=== PATIENT | male | born 1935 | race Caucasian/White ===

== ENCOUNTER 2017-02-26 03:07 | Inpatient (IN) | payer OTHER ==
[~2017-02-26] VITALS: Ht 185.4 cm; Wt 80.4 kg
[~2017-02-26 03:07] MED LIST: AMLO-110 PO; ASCO10003 PO; ASPI81TA21 PO; ATEN-173 PO; ATV/1 PO; CHOLCAP5 PO; COEN1CAP PO; FLAX100024 PO; GARL400T4 PO; HYDR-4380 PO; HYZ/50125 PO; LECI1200 PO; MAGN1TAB16 PO; NIAC500T7 PO; OMEP20CA59 PO; POTA99TA PO; SIMV20TA2 PO; VITA1TAB4 PO
[2017-02-26 03:36] LABS: COMPLETE YES; HEMATOCRIT 40.9 % (42-52); IG% 0.2 %; LYMPH % 9.2 %; LYMPH ABS # 0.78 K/uL (1.2-3.4); MEAN CELL VOLUME 95.6 fL (80-100); MEAN CORPUSCULAR HEMOGLOBIN 32.2 pg (25-34); MEAN CORPUSCULAR HGB CONC 33.7 g/dl (32-36); MEAN PLATELET VOLUME 9.5 fL (7.4-10.4); NEUT % 87.6 %; PLATELET COUNT 298 K/uL (130-400); RED BLOOD COUNT 4.28 M/uL (4.7-6.1); WHITE BLOOD COUNT 8.47 K/uL (4.8-10.8)
[2017-02-26 03:55] LABS: BUN/CREATININE RATIO 21.6 (10-20); CALCIUM 8.8 mg/dl (8.5-10.1); CREATININE 2.1 mg/dl (0.60-1.40); POTASSIUM 4.7 mmol/L (3.5-5.1)
--- NOTE | 2017-02-26 04:12 | EMERGENCY ROOM VISIT NOTE ---
History Report prepared by Dilip: Dario Koch Under the Supervision of: Dr. Mariama Walters D.O. First contact with patient: 03:09 Chief Complaint: CHEST PAIN Stated Complaint: CHEST PAIN History of Present Illness The patient is a 82 year old male who presents to the Emergency Room with complaints of resolved chest pain starting about 5 hours ago. Yesterday afternoon, the patient had chest pain which resolved after a few seconds. The chest pain radiated to the back. He was at baseline for the rest of the afternoon and evening. About 5 hours ago, the patient went to sleep with persistent chest pain. He woke up about 2 hours ago when his pain worsened. He reports pain radiation from chest to neck and under his ears. He also reports shortness of breath. He took Hyzaar when his pain worsened and his blood pressure was elevated. He was given Aspirin by EMS. He did not receive any nitro. He currently denies any chest pain. The patient denies fevers, chills, cough, diaphoresis, nausea, vomiting, abdominal pain, lower extremity pain/ swelling, or any other complaints. He has a history of similar pain occurring in 2003 with myocardial infarction. He has a history of 4 bypass occurring in 2003. He did not have a recent stress test. He does not frequently have heart burn. He also has a history of 2 TIA. Source of History: patient Onset: about 5 hours ago Position: chest Symptom Intensity: No pain currently Timing: resolved Modifying Factors (Relieving): other (Aspirin) Associated Symptoms: + SOB, No fevers, No chills, No diaphoresis, No nausea , No vomiting, No abdominal pain Review of Systems See HPI for pertinent positives & negatives. A total of 10 systems reviewed and were otherwise negative. Past Medical & Surgical Medical Problems: (1) Abnormal chest xray (2) Acute renal failure (3) Chronic back pain (4) Heart disease (5) Hypertension (6) Neuropathy (7) Orthostatic hypotension (8) Renal failure (9) Rotator cuff (capsule) sprain (10) Skin lesion of back (11) Vertigo Family History Patient reports no known family medical history. Social History Smoking Status: Never Smoker Alcohol Use: none Marital Status: Housing Status: lives with family Current/Historical Medications Scheduled Amlodipine (Norvasc), 10 MG PO DAILY Aspirin Enteric Coated (Ecotrin Or Generic), 81 MG PO QAM Atenolol (Tenormin), 50 MG PO QAM Hctz/Losartan (Hyzaar 12.5MG/50MG), 1 TAB PO QAM Lorazepam (Ativan), 0.5 MG PO HS Omeprazole (Prilosec), 20 MG PO QAM Simvastatin (Zocor), 20 MG PO QPM Scheduled PRN Hydrocodone/Acetaminophen 5MG/325MG ([place] 5MG/325MG), 1 TABLET PO UD PRN for Pain Allergies Coded Allergies: Methylprednisolone (Verified Allergy, Unknown, FAST HEART RATE, 02/26/17) Tetracycline (Verified Allergy, Unknown, RASH, 02/26/17) NSAIDs (Verified Adverse Reaction, Intermediate, ULCER, 02/26/17) Physical Exam Vital Signs Date Time Temp Pulse Resp B/P (MAP) Pulse Ox O2 Delivery O2 Flow Rate FiO2 02/26/17 05:30 66 16 140/77 96 Room Air 02/26/17 05:00 68 17 158/81 96 Room Air 02/26/17 04:30 66 19 145/80 96 Room Air 02/26/17 04:00 64 19 148/75 96 Room Air 02/26/17 03:22 Room Air 02/26/17 03:18 71 02/26/17 03:10 Room Air 02/26/17 03:10 36.7 64 18 161/94 93 Room Air Physical Exam HEENT: Head - normocephalic and atraumatic Pupils are equal, round, and reactive to light. Extraocular eye muscles are intact, and sclera are anicteric. Nose - moist nasal mucosa without discharge. Mouth - moist buccal mucosa. Oropharynx is nonerythematous and there is no tonsillar exudate or edema noted. Neck: Supple; no JVD, nuchal rigidity, cervical lymphadenopathy, or auscultated bruits. Heart: Regular rate and rhythm. There is a normal S1 and S2 with no murmurs, clicks, or gallops appreciated. Lungs: Clear to auscultation bilaterally with no wheezes, rales, or rhonchi. Abdomen: Soft, completely nontender, nondistended, with good bowel sounds. There are no palpable pulsatile masses or hepatosplenomegaly. There is no guarding, rigidity, or rebound noted. Extremities: No evidence of cyanosis, clubbing, or edema. There are easily palpable peripheral pulses. Skin: warm and dry with good turgor and no rashes. Medical Decision & Procedures ER Provider Diagnostic Interpretation: X-ray results as stated below per interpretation by me: PORTABLE CHEST X-RAY Old bilateral rib fractures, median sternotomy wires, no other pulmonary pathology. Laboratory Results Test 02/26/17 03:20 Immature Granulocyte % (Auto) 0.2 % White Blood Count 8.47 K/uL (4.8-10.8) Red Blood Count 4.28 M/uL (4.7-6.1) Hemoglobin 13.8 g/dL (14.0-18.0) Hematocrit 40.9 % (42-52) Mean Corpuscular Volume 95.6 fL (80-100) Mean Corpuscular Hemoglobin 32.2 pg (25-34) Mean Corpuscular Hemoglobin Concent 33.7 g/dl (32-36) Platelet Count 298 K/uL (130-400) Mean Platelet Volume 9.5 fL (7.4-10.4) Neutrophils (%) (Auto) 87.6 % Lymphocytes (%) (Auto) 9.2 % Monocytes (%) (Auto) 3.0 % Eosinophils (%) (Auto) 0.0 % Basophils (%) (Auto) 0.0 % Neutrophils # (Auto) 7.42 K/uL (1.4-6.5) Lymphocytes # (Auto) 0.78 K/uL (1.2-3.4) Monocytes # (Auto) 0.25 K/uL (0.11-0.59) Eosinophils # (Auto) 0.00 K/uL (0-0.5) Basophils # (Auto) 0.00 K/uL (0-0.2) Immature Granulocyte # (Auto) 0.02 K/uL (0.00-0.02) Total Bilirubin 0.5 mg/dl (0.2-1) Aspartate Amino Transf (AST/SGOT) 23 U/L (15-37) Alanine Aminotransferase (ALT/SGPT) 29 U/L (12-78) Alkaline Phosphatase 72 U/L (45-117) Total Protein 7.4 gm/dl (6.4-8.2) Albumin 3.7 gm/dl (3.4-5.0) Globulin 3.7 gm/dl (2.5-4.0) Albumin/Globulin Ratio 1.0 (0.9-2) Laboratory results per my review. Medications Administered Medications (Trade) Dose Ordered Sig/Dimas Route Start Time Stop Time Status Last Admin Dose Admin Heparin Sodium/ Dextrose (Heparin 25,000 Unit/500ml D5W) 25,000 unit STK-MED ONCE .ROUTE 02/26/17 04:37 02/26/17 04:38 DC 02/26/17 04:31 25,000 UNIT Heparin Sodium (Porcine) (Heparin Sq 5000 Unit/0.5ml) 5,000 unit STK-MED ONCE .ROUTE 02/26/17 04:37 02/26/17 04:38 DC 02/26/17 04:32 5,000 UNIT Heparin Sodium/ Dextrose 500 ml @ 29 mls/hr [id number] PRN IV 02/26/17 05:00 03/28/17 04:59 02/27/17 00:24 32 MLS/HR Acetaminophen (Tylenol Tab) 650 mg Q4H PRN PO 02/26/17 05:30 03/28/17 05:29 02/26/17 20:56 650 MG Procedure Heparin Sodium/Dextrose 1 ea N/A, Heparin Sodium Porcine 5000 unit IV, Heparin Sodium/Dextrose 47969 unit IV, Heparin Sodium/Dextrose 500 ml @ 29 mls/hr IV ECG Indication: chest pain Rate (beats per minute): 68 Rhythm: normal sinus Findings: ST depression (inferior, lateral) Comparison ECG Date: December 08, 2014 Change: Changes are new when compared to December 08, 2014. ED Course 0309: Past medical records reviewed. The patient was evaluated in room A11B. A complete history and physical exam was performed. An IV lock was initiated and labs were drawn as above. A twelve-lead EKG was obtained as described above. A chest x-ray was obtained and was unremarkable other than having chronic old rib fractures. 0404: Heparin Sodium/Dextrose 1 ea N/A . The patient was observing the cycle director and pulse oximeter. 0408: Upon reevaluation, the patient is getting started on a bolus and a heparin drip. I discussed findings and results with him. He verbalized agreement of the treatment plan. The patient will be evaluated for further management and care. 0453: I discussed the patient's case with Dr. Maldonado, from [facility]. 0500: Heparin Sodium/Dextrose 500 ml @ 29 mls/hr IV Medical Decision The patient presents to the Emergency Room with complaints of chest pain. Differential diagnosis includes but is not limited to unstable angina, cardiac ischemia, STEMI, NSTEMI, GERD. His labs showed no leucocytosis, mild anemia with hemoglobin of 13.8, BUN 45, creatinine 2.1, [id number], normal LFTs, troponin 0.259. I attest that I have personally reviewed the patient's current medication list. The patient's blood pressure was slightly elevated and does not require acute lowering. This is an 82-year-old male patient who presents to the emergency with an episode of chest pain. He has new EKG findings and positive cardiac enzymes. The patient is suffering from an and STEMI. He was heparinized. He is currently chest pain-free. He is hemodynamically stable. I discussed the case with the [facility] service. They will evaluate for further care. Consults Time Called: 041 Consulting Physician: Dr. Maldonado, from [facility] Service Returned Call: [phone] I discussed the patient's case with Dr. Maldonado, from [facility]. Impression Primary Impression: NSTEMI (non-ST elevated myocardial infarction) Additional Impression: Acute renal insufficiency Critical Care I have personally spent greater than 30 minutes of critical care time in the direct management of this patient. This includes bedside care, interpretation of diagnostic studies, and testing, discussion with consultants, patient, and other required patient management activities. This 30 minutes is in excess of all separately billable procedures. Scribe Attestation The scribe's documentation has been prepared under my direction and personally reviewed by me in its entirety. I confirm that the note above accurately reflects all work, treatment, procedures, and medical decision making performed by me. Departure Information Dispostion Being Evaluated By Hospitalist Referrals Yaw Oconnell M.D. (PCP) Patient Instructions My [facility] Problem Qualifiers
[2017-02-26] MEDS ORDERED: HEPARIN 25000 UNIT/500 ML D5W ONE (04:37)
[2017-02-26] MEDS ORDERED: HEPARIN SOD 5000 UNIT/0.5 ML CARP ONE (04:37)
[2017-02-26] MEDS ORDERED: AMLO-114 PO (04:43)
[2017-02-26] MEDS ORDERED: HYDR-5688 PO (04:44)
[2017-02-26] MEDS ORDERED: ONDANSETRON INJ 2 MG/ML 2 ML VIAL IV PRN (05:30)
[2017-02-26] MEDS ORDERED: MAGNESIUM HYDROXIDE SUSP 30 ML UDC PO PRN (05:30)
[2017-02-26] MEDS ORDERED: ACETAMINOPHEN 325 MG TAB PO PRN (05:30)
[2017-02-26] MEDS ORDERED: NITROGLYCERIN 0.4 MG SL PER TAB CHARGE SL PRN (05:30)
[2017-02-26] MEDS ORDERED: MoRPHine SULFATE 2 MG/ML CARP IV PRN (05:30)
[2017-02-26] MEDS ORDERED: ALUMINUM/MAGNESIUM/SIMETH (MAALOX MAX) 30 ML UDC PO PRN (05:30)
[2017-02-26] MEDS ORDERED: POLYETHYLENE (MIRALAX) 17 GM PACK PO PRN (05:30)
[2017-02-26] MEDS ORDERED: HYDROCODONE/ACETAMOPHEN 5/325MG TAB PO PRN (05:45)
--- NOTE | 2017-02-26 06:08 | History and Physical ---
History & Physical Date & Time of Service: Feb 26, 2017 at 05:42 Chief Complaint: Chest Pain Primary Care Physician: Milagros Villela C.R.N.P History of Present Illness Source: patient, family, spouse This is a pleasant 82-year-old male, with history of coronary artery disease, CABG 4, hypertension, hyperlipidemia, chronic back pain, osteoarthritis, who presents to ED brought by ambulance after rinsing acute onset chest pain today. The patient states that he was in his usual state of health, he was out on his property, clearing branches from the forest, at approximately 1 PM yesterday afternoon. He notes that as he is carrying a pile of branches, and walking up a small hill when he began experiencing a sternal pressure type sensation, that radiated to the neck and jaw. He states that he did have some palpitations, but denies having any lightheadedness or dizziness, shortness of breath, syncope , or lower extremity edema. He also denies cough or wheezing. After resting for proximal with 30 minutes, he notes that his symptoms at subsided completely. He continued on with his day aneurysm was uneventful until approximately 10 PM last night when he tried to get to bed. Soon as he went to bed he noticed that the chest pressure and return, albeit slightly less severe than what he experienced earlier in the day. Unfortunate chest pressure continued on until approximately 1 AM this morning and at that time he made the decision to call the ambulance and be brought to the hospital for further evaluation. Of note, the patient states that he recently was right rotator cuff and was seen yesterday morning by Dr. Chery for further evaluation. At that time he was given a cortisone injection in the right shoulder. Patient notes that he has a history of acute CA. In 2003 he had quadruple bypass at [facility]. He follows with Dr. Hargrove. Last outpatient follow-up was in October of this year, he notes that no changes were made to his medications at that time. His last echocardiogram was done in 2015. These are in the [facility] records and are therefore not available. In general the patient notes that he does not get exertional chest pain or shortness of breath. He is quite active, stating that he walks on a treadmill daily up until proximally 2 months ago when chronic lower back pain prevented him from doing this activity daily. His other risk factors include hypertension, and hyperlipidemia. States that he has been noncompliant with his statin for several months, as his PCP noted that he did not need it anymore. He is a lifelong nonsmoker and does not drink alcohol. He does have a significant family history of CA, with one brother who of a CA at the age of 72, 1 brother who had a CABG in his 60s, and another brother who had 4 stents in his 60s. En route to the ED, the patient was given 324 mg aspirin chew. In the ED he had an elevated troponin of 0.259, and nonspecific ST-T wave changes. He was started on heparin infusion. At this time the patient notes that he is chest pain-free. Past Medical/Surgical History Medical Problems: (1) Acute renal failure Status: Resolved (2) Heart disease Status: Chronic (3) Hypertension Status: Chronic (4) Orthostatic hypotension Status: Resolved (5) Renal failure Status: Resolved (6) Vertigo Status: Resolved Family History Patient reports no known family medical history. 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) Immunizations History of Tetanus Vaccine?: Yes History of Pneumococcal: 2004 History of Hepatitis B Vaccine: No Multi-Drug Resistant Organisms History of MDRO: No Allergies Coded Allergies: Methylprednisolone (Verified Allergy, Unknown, FAST HEART RATE, 02/26/17) Tetracycline (Verified Allergy, Unknown, RASH, 02/26/17) NSAIDs (Verified Adverse Reaction, Intermediate, ULCER, 02/26/17) Home Medications Scheduled Amlodipine (Norvasc), 10 MG PO DAILY Aspirin Enteric Coated (Ecotrin Or Generic), 81 MG PO QAM Atenolol (Tenormin), 50 MG PO QAM Hctz/Losartan (Hyzaar 12.5MG/50MG), 1 TAB PO QAM Lorazepam (Ativan), 0.5 MG PO HS Omeprazole (Prilosec), 20 MG PO QAM Simvastatin (Zocor), 20 MG PO QPM Scheduled PRN Hydrocodone/Acetaminophen 5MG/325MG ([place] 5MG/325MG), 1 TABLET PO UD PRN for Pain Review of Systems A 10 point review of systems was otherwise negative unless stated above in the history of present illness Physical Exam Vital Signs Date Time Temp Pulse Resp B/P (MAP) Pulse Ox O2 Delivery O2 Flow Rate FiO2 02/26/17 05:00 68 17 158/81 96 Room Air 02/26/17 04:30 66 19 145/80 96 Room Air 02/26/17 04:00 64 19 148/75 96 Room Air 02/26/17 03:22 Room Air 02/26/17 03:18 71 02/26/17 03:10 Room Air 02/26/17 03:10 36.7 64 18 161/94 93 Room Air General Appearance: WD/WN, no apparent distress Head: normocephalic, atraumatic Eyes: normal inspection, EOMI ENT: hearing grossly normal, pharynx normal Neck: supple, no adenopathy, no JVD Respiratory/Chest: lungs clear, no respiratory distress Cardiovascular: regular rate, rhythm, no gallop, no murmur Abdomen/GI: normal bowel sounds, non tender, soft Back: no CVA tenderness, no muscle spasm, + pertinent finding (1 cm x 1 cm pigmented lesion with color variation.) Extremities/Musculoskelatal: no calf tenderness, no pedal edema, + pertinent finding (bruising of the right arm) Neurologic/Psych: alert, normal mood/affect, oriented x 3 Skin: normal color, warm/dry, no rash Lymphatic: no adenopathy Diagnostics Laboratory Results Results Past 24 Hours Test 02/26/17 03:20 Range/Units White Blood Count 8.47 4.8-10.8 K/uL Red Blood Count 4.28 4.7-6.1 M/uL Hemoglobin 13.8 14.0-18.0 g/dL Hematocrit 40.9 42-52 % Mean Corpuscular Volume 95.6 80-100 fL Mean Corpuscular Hemoglobin 32.2 25-34 pg Mean Corpuscular Hemoglobin Concent 33.7 32-36 g/dl Platelet Count 298 130-400 K/uL Mean Platelet Volume 9.5 7.4-10.4 fL Neutrophils (%) (Auto) 87.6 % Lymphocytes (%) (Auto) 9.2 % Monocytes (%) (Auto) 3.0 % Eosinophils (%) (Auto) 0.0 % Basophils (%) (Auto) 0.0 % Neutrophils # (Auto) 7.42 1.4-6.5 K/uL Lymphocytes # (Auto) 0.78 1.2-3.4 K/uL Monocytes # (Auto) 0.25 0.11-0.59 K/uL Eosinophils # (Auto) 0.00 0-0.5 K/uL Basophils # (Auto) 0.00 0-0.2 K/uL RDW Standard Deviation 46.2 36.4-46.3 fL RDW Coefficient of Variation 13.4 11.5-14.5 % Immature Granulocyte % (Auto) 0.2 % Immature Granulocyte # (Auto) 0.02 0.00-0.02 K/uL Sodium Level 140 136-145 mmol/L Potassium Level 4.7 3.5-5.1 mmol/L Chloride Level 106 98-107 mmol/L Carbon Dioxide Level 25 21-32 mmol/L Anion Gap 9.0 3-11 mmol/L Blood Urea Nitrogen 45 7-18 mg/dl Creatinine 2.10 0.60-1.40 mg/dl Est Creatinine Clear Calc Drug Dose 31.7 ml/min Estimated GFR () 33.4 Estimated GFR (Non- 28.9 BUN/Creatinine Ratio 21.6 10-20 Random Glucose 142 70-99 mg/dl Calcium Level 8.8 8.5-10.1 mg/dl Total Bilirubin 0.5 0.2-1 mg/dl Aspartate Amino Transf (AST/SGOT) 23 15-37 U/L Alanine Aminotransferase (ALT/SGPT) 29 12-78 U/L Alkaline Phosphatase 72 45-117 U/L Total Creatine Kinase 307 39-308 U/L Creatine Kinase MB 6.0 0.5-3.6 ng/ml Creatine Kinase MB Ratio 2.0 0-3.0 Troponin I 0.259 0-0.045 ng/ml Total Protein 7.4 6.4-8.2 gm/dl Albumin 3.7 3.4-5.0 gm/dl Globulin 3.7 2.5-4.0 gm/dl Albumin/Globulin Ratio 1.0 0.9-2 Diagnostic Radiology Chest x-ray reviewed, formal read is pending There appear to be opacities in the left lung field, with some opacification at the base. Impression Assessment and Plan (1) NSTEMI (non-ST elevated myocardial infarction) Assessment & Plan: - Previous history of acute CA, CABG 4 --> by default makes patient high risk - Troponin elevated on admission at 0.259 - Admitted to telemetry for cardiac monitoring - Trend cardiac enzymes every 6 hours until peak - EKG every morning and with chest pain - Echocardiogram for evaluation of new regional wall motion abnormality Previous records via G, therefore do not have access to them - [facility] cardiology consulted for further recommendations - Nitroglycerin 0.4 mg sublingually with chest pain - ASA 324 mg given in the ambulance; continue 81 mg daily - Patient is currently on a heparin infusion, until evaluated by cardiology - Patient takes simvastatin at home though he has been noncompliant; I changed him over to atorvastatin 40 mg daily - Continue atenolol - Continue HCTZ/losartan (2) Heart disease Assessment & Plan: - As above for management of NSTEMI (3) Abnormal chest xray Assessment & Plan: - Chest x-ray was reviewed, with what appears to be opacities - Await formal read; pending the chest x-ray interpretation, patient may require noncontrast CT the chest further evaluation (4) Hypertension Assessment & Plan: - Continue amlodipine - Continue atenolol - Continue HCTZ/losartan (5) Skin lesion of back Assessment & Plan: - Appears to have some melanotic features - Nonacute, can be excised as outpatient (6) Rotator cuff (capsule) sprain Assessment & Plan: - Notes that he was evaluated by Dr. 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 Y/N: Yes Risk Level: Moderate Given or contraindicated: Unfractionated heparin SQ (infusion) Note Resident Physician Supervision Note: I was present with Dr. Barragan during the history and exam. I discussed the case with the resident and agree with the findings and plan as documented in the note. Any exceptions or clarifications are listed here: 82 y/o M Hx CAD and CABG 2003 - presents following episode of CP radiating into neck - has + Trop and EKG changes suggesting inf/lat ischemia OE AAO x 3 S1,2 R CTAB NT, ND No CCE P: Placed on full-dose Heaprin, ASA, NTG To be evaluated by cardiology CXR is incidentally abnormal revealing b/l nodular densities - would f/u with CT chest following acute management of current presumed CA Discussed in detail with pt Documented By: Adolfo Maldonado
[2017-02-26 06:52] VITALS: BP 163/77; PULSE 64; TEMP 36.5; O2SAT 96; Ht 185.4 cm; Wt 80.4 kg
[2017-02-26] MEDS: HEPARIN 25,000 UNIT/500ML D5W 500 ML IV PRN (07:21)
[2017-02-26 07:30] VITALS: BP 140/66; PULSE 72; TEMP 36.7; O2SAT 96
--- NOTE | 2017-02-26 07:31 | DIAGNOSTIC IMAGING REPORT ---
SINGLE VIEW CHEST CLINICAL HISTORY: Atypical chest pain. FINDINGS: An AP, portable, upright chest radiograph is compared to study dated 12/09/2014 and correlated with chest CT dated 03/08/2009. The examination is degraded by portable technique and patient rotation. The patient is status post midline sternotomy. The heart is enlarged and there is atherosclerotic calcification of the thoracic aorta. There is chronic elevation of left hemidiaphragm with left basilar scarring/atelectasis. No airspace consolidation is seen typical for pneumonia and there is no large pleural effusion. No pneumothorax is seen. The skeletal structures are osteopenic. There are healed left-sided rib fractures. Arthritic change is noted in the shoulders. IMPRESSION: Cardiomegaly and chronic parenchymal changes as above. No acute cardiopulmonary abnormality is seen. Electronically signed by: Cb Lagunas M.D. 02/26/2017 7:29 AM Dictated Date/Time: 02/26/2017 7:28 AM
[2017-02-26] MEDS: SODIUM CHLORIDE 0.9% 1000ML 1,000 ML IV SCH ×2 (08:45→18:43)
[2017-02-26] MEDS ORDERED: LOSARTAN/HCTZ 50-12.5 EA TAB PO SCH (09:00)
[2017-02-26] MEDS ORDERED: PERFLUTREN LIPID MICROSPHERE (DEFINITY) IV ONE (09:02)
[2017-02-26] MEDS: ATORVASTATIN 40 MG TAB PO SCH (09:26)
[2017-02-26] MEDS: AMLODIPINE BESYLATE 5 MG TAB PO SCH (09:26)
[2017-02-26] MEDS: ASPIRIN 81 MG ECTAB PO SCH (09:26)
[2017-02-26] MEDS: PANTOprazole SOD 40 MG TAB PO SCH (09:27)
--- NOTE | 2017-02-26 10:02 | ECHOCARDIOGRAM REPORT ---
*NOTICE TO RECEIVING [employer] This information is strictly Confidential and protected under [place] law. [place] law prohibits you from making any further disclosure of this information unless further disclosure is expressly permitted by the written consent of the person to whom it pertains or is authorized by law. A general authorization for the release of medical or other information is not sufficient for this purpose. Hospital accepts no responsibility if the information is made available to any other person, INCLUDING THE PATIENT. Interpretation Summary * Name: JUAN DAY Study Date: 02/26/2017 08:36 AM BP: 163/77 mmHg * [facility]\1 HR: 64 * : 1935 (M/d/yyyy) Gender: Male Height: 73 in * Age: 82 yrs Ethnicity: CA Weight: 177 lb * Ordering Physician: Richard Hargrove * Referring Physician: Self, Referred * Performed By: Adilene Combs RDCS * * Reason For Study: AMI * BSA: 2.0 m2 * -- Conclusions -- * Normal LV chamber size with mild concentric LVH, sigmoid appearing septum. * Normal LV systolic function, EF 55-60%. * Mild hypokinesis of the basal and mid inferolateral veras, otherwise, normal wall motion. * Grade I diastolic dysfunction. * Aortic valve sclerosis moderate, without significant aortic valvular stenosis. * Mild mitral regurgitation. Procedure Details * A contrast injection of Definity was performed to improve assessment of LV function. * Contrast was injected into an intravenous site in the left arm. * One vial of Definity ultrasound contrast was diluted in normal saline to a total volume of 10 ml. A total of '2' ml of solution was administered during imaging. * Lot # [id number] of Definity utilized for procedure. * Expiration date 1 MAR 25. * The attending nurse who injected the contrast agent was JOY QIU RN. Left Ventricle * The left ventricle is normal in size. * There is mild concentric left ventricular hypertrophy. * The basal septum is thickened and angulated consistent with sigmoid septum. * Ejection Fraction = 55-60%. * Left ventricular systolic function is normal. * Mild hypokinesis of the basal and mid inferolateral veras, otherwise, normal wall motion. Right Ventricle * The right ventricular cavity size is normal (basal dimension <4.2 cm in right ventricular apical 4-chamber view). * The right ventricular systolic function is normal as assessed by tricuspid annular plane systolic excursion (TAPSE) (normal >1.5 cm). Atria * The left atrium is mildly dilated. * Right atrial size is normal. * No ASD detected; PFO is not assessed. Mitral Valve * The mitral valve anatomy is normal. * There is no mitral valve stenosis. * There is mild mitral regurgitation. Tricuspid Valve * The tricuspid valve is normal in structure and function. Aortic Valve * The aortic valve is trileaflet. * Aortic valve sclerosis moderate, without significant aortic valvular stenosis. * There is no significant aortic regurgitation. Pulmonic Valve * The pulmonary valve is not well seen, but the Doppler examination is normal without significant regurgitation or stenosis. Great Vessels * The aortic root is normal size. Pericardium/Pleural * There is no pericardial effusion. Left Ventricular Diastolic Function * Grade I diastolic dysfunction, (abnormal relaxation pattern). MMode 2D Measurements and Calculations IVSd 1.6 cm IVSs 2.1 cm LVIDd 4.3 cm LVIDs 3.2 cm LVPWd 1.2 cm LVPWs 1.4 cm IVS/LVPW 1.3 FS 25.8 % EDV(Teich) 84.9 ml ESV(Teich) 41.6 ml EF(Teich) 51.1 % EDV(cubed) 81.8 ml ESV(cubed) 33.4 ml EF(cubed) 59.2 % % IVS thick 32.0 % % LVPW thick 23.9 % LV mass(C)d 227.5 grams LV mass(C)dI 111.4 grams/m\S\2 LV mass(C)s 227.3 grams LV mass(C)sI 111.2 grams/m\S\2 SV(Teich) 43.4 ml SI(Teich) 21.2 ml/m\S\2 SV(cubed) 48.4 ml SI(cubed) 23.7 ml/m\S\2 Ao root diam 3.5 cm Ao root area 9.8 cm\S\2 LA dimension 4.2 cm LA/Ao 1.2 LVAd ap4 40.8 cm\S\2 LVLd ap4 9.4 cm EDV(MOD-sp4) 144.2 ml EDV(sp4-el) 150.8 ml LVAs ap4 24.9 cm\S\2 LVLs ap4 8.3 cm ESV(MOD-sp4) 65.1 ml ESV(sp4-el) 63.4 ml EF(MOD-sp4) 54.9 % EF(sp4-el) 57.9 % LVAd ap2 39.3 cm\S\2 LVLd ap2 8.9 cm EDV(MOD-sp2) 140.4 ml EDV(sp2-el) 147.1 ml LVAs ap2 22.2 cm\S\2 LVLs ap2 7.0 cm ESV(MOD-sp2) 56.7 ml ESV(sp2-el) 59.4 ml EF(MOD-sp2) 59.6 % EF(sp2-el) 59.6 % LVLd %diff -5.23 % EDV(MOD-bp) 145.8 ml LVLs %diff -18.09 % ESV(MOD-bp) 62.2 ml EF(MOD-bp) 57.3 % SV(MOD-sp4) 79.1 ml SI(MOD-sp4) 38.7 ml/m\S\2 SV(MOD-sp2) 83.7 ml SI(MOD-sp2) 41.0 ml/m\S\2 SV(MOD-bp) 83.6 ml SI(MOD-bp) 40.9 ml/m\S\2 SV(sp4-el) 87.4 ml SI(sp4-el) 42.8 ml/m\S\2 SV(sp2-el) 87.7 ml SI(sp2-el) 42.9 ml/m\S\2 Doppler Measurements and Calculations MV E max jennyfer 91.2 cm/sec MV A max jennyfer 106.7 cm/sec MV E/A 0.85 MV dec time 0.24 sec Ao V2 max 200.5 cm/sec Ao max PG 16.1 mmHg Ao max PG (full) 11.1 mmHg Ao V2 mean 141.1 cm/sec Ao mean PG 8.7 mmHg Ao mean PG (full) 6.4 mmHg Ao V2 VTI 52.2 cm LV V1 max PG 5.0 mmHg LV V1 mean PG 2.4 mmHg LV V1 max 111.6 cm/sec LV V1 mean 70.7 cm/sec LV V1 VTI 29.4 cm SV(Ao) 510.4 ml SI(Ao) 249.9 ml/m\S\2 TR max jennyfer 237.9 cm/sec
--- NOTE | 2017-02-26 11:28 | CARDIOLOGY CONSULTATION ---
DATE OF CONSULTATION: 02/26/2017 DATE OF CONSULTATION: 02/26/2017. CONSULTATION REQUESTED BY: Dr. Maldonado. REASON FOR CONSULTATION: Chest pain. HISTORY OF PRESENT ILLNESS: Mr. Trinh is a very pleasant 82-year-old gentleman who normally follows with myself as an outpatient for his history of coronary artery disease. He presented to [facility] early in the a.m. of 02/26/2017 with a complaint of chest pain. The patient states that his symptoms started earlier in the day. He states when he woke up yesterday morning he was in his normal state of health. He was then clearing brush on his property when he was dragging brush across a yard when he suddenly developed some chest discomfort. He described the discomfort as a tightness in the center of his chest that radiated across his left precordium and through to his shoulder blades. It was associated with diaphoresis, shortness of breath and overall sensation of fatigue. Of note, he states that these symptoms were exactly similar to the chest discomfort he experienced prior to undergoing bypass surgery approximately 13 years ago. He states at that time he went in the house to rest. He did take his blood pressure at that time and it was elevated for him at 180/90. He simply rested for some time and his symptoms resolved. He did feel tired throughout the rest of the day but without any recurrent chest discomfort. Later that evening when he went to lay down in bed the discomfort recurred. He rechecked his blood pressure at that time, it was improved to the 160s, which again is a little on the high side for him and he also noted himself to be tachycardic with heart rate around 100. At that point he took an extra dose of Hyzaar hoping to get his blood pressure under control. His discomfort persisted again, was not as intense as earlier with activity but it was annoying and he was unable to fall sleep and at that point he called EMS. Upon arrival to the Emergency Department, his initial troponin was unremarkable. EKG showed new lateral ST segment depressions. He was placed on heparin and admitted to telemetry. He had no further discomfort ever since receiving aspirin in the ambulance. He was not given any nitroglycerin and unfortunately he did not have any at home either. PAST SURGICAL HISTORY: 1. Coronary bypass grafting surgery x4 in 2003 with a NOLASCO to the LAD, vein graft to the intermediate, vein graft to distal RCA and vein graft to the circumflex, posterior lateral branch. 2. Cataract surgery. 3. Tonsil and adenoidectomy. 4. Hernia repair. 5. Upper endoscopy. MEDICAL ILLNESSES: 1. Coronary artery disease status post CABG x4. 2. Grade 1 diastolic dysfunction with normal left ventricular systolic function. 3. Stage III chronic kidney disease. 4. Hypertension. 5. Dyslipidemia. FAMILY HISTORY: Noncontributory. SOCIAL HISTORY: The patient denies any alcohol, tobacco or recreational drug use. He lives at home with his . [place] is [place]. REVIEW OF SYSTEMS: As per HPI, all other review of systems reviewed and negative at this time. ALLERGIES: YANDEL INHIBITOR, METHYLPREDNISOLONE AND TETRACYCLINE. MEDICATIONS AN OUTPATIENT: 1. Aspirin 81 mg daily. 2. Hyzaar 50/12.5 mg daily. 3. Atenolol 50 mg daily. 4. Simvastatin 20 mg daily. 5. Ativan as needed. 6. Amlodipine 10 mg daily. PHYSICAL EXAMINATION: VITALS: Temperature 36.8, pulse 83, respiratory rate 12, blood pressure 126/83. GENERAL: Awake, alert, oriented x3 in no acute distress. HEAD, EYES, EARS, NOSE, AND THROAT: Normocephalic, atraumatic. Pupils equal, round, and reactive to light and accommodation. Extraocular muscles intact. Anicteric sclerae. Moist mucous membranes. NECK: No JVD, no bruit. CARDIOVASCULAR: Is regular. Positive S4. Normal S1 and S2. No S3. A 2/6 mid to late systolic ejection murmur at the right sternal border second intercostal space without radiation, no rubs. PULMONARY: Clear to auscultation bilaterally. No rales, rhonchi, or wheezing. ABDOMEN: Bowel sounds x4, soft. No rebound, guarding, tenderness. No organomegaly. EXTREMITIES: No clubbing, cyanosis or edema. +2 pedal pulses bilaterally. SKIN: Warm and dry. TEST RESULTS: Laboratory studies of significance sodium 140, potassium 4.7, BUN 45, creatinine 2.1, initial troponin of 0.26. CPK of 307, followup are pending. A 2D echocardiogram was read as normal LV chamber size with mild concentric LVH, sigmoid appearing septum, normal LV systolic function, EF 55-60%, mild hypokinesis of the basal and mid inferior lateral veras. Otherwise, normal wall motion. Grade 1 diastolic dysfunction, moderate aortic valve sclerosis without stenosis, mild mitral regurgitation. A 12-lead EKG performed in the Emergency Department independently reviewed at this time shows normal sinus rhythm at 68 beats per minute, normal axis, normal intervals, LVH pattern. ST segment depressions in the lateral leads, new compared to previous study of September 2016. IMPRESSION: 1. Likely non-ST segment elevation myocardial infraction. 2. History of coronary artery disease, status post coronary artery bypass graft x4. 3. Hypertension. 4. Dyslipidemia. RECOMMENDATIONS: It was my pleasure to see Mr. Trinh in consultation today. Given the constellation of his symptoms, EKG changes and subtle wall motion abnormalities, I do believe the patient is suffering from an ST segment elevation DC. Luckily though he is chest pain free and has not had any signs of ST segment elevations, so given his acute on chronic renal failure, I believe the most prudent course of action at this point would be to give him IV fluids to help improve his renal function and then likely proceed with cardiac catheterization in the a.m. This was discussed with the patient and his and they are both in agreement. In the meantime his heart rates have been running in the 60s, so I will not increase his beta richard. He is chest pain free, so there is no need for nitroglycerin at this point. His heparin will be continued. He is instructed that should he experience any chest discomfort he is to let nursing staff know right away at which point EKG should be repeated and he can be given nitroglycerin for pain. Otherwise, should his heart rate start to increase then will increase his beta blockade. Otherwise, his aspirin should be continued as well as his amlodipine and simvastatin. Will hold off on any further Hyzaar doses at this point.
[2017-02-26 11:30] VITALS: BP 133/67; PULSE 68; TEMP 36.7; O2SAT 96
[2017-02-26 12:47] LABS: PARTIAL THROMBOPLASTIN RATIO 1.1
[2017-02-26] MEDS ORDERED: NURSING VERBAL MED ORDER ONE (13:00)
[2017-02-26] MEDS ORDERED: HEPARIN IV BOLUS 6,000 UNIT in SYRINGE 0 ML IV ONE (13:15)
--- NOTE | 2017-02-26 13:41 | Family Medicine Progress Note ---
Progress Note Date of Service Feb 26, 2017. Subjective Pt evaluation today including: conversation w/ patient, conversation w/ family Voiding: no voiding problems Pt seen this morning, and did not have any pain. Understood he may get a heart cath at some point. Denied any nausea, vomiting, or other concerns. Constitutional: No fever, No chills Respiratory: No cough, No wheezing, No shortness of breath Cardiovascular: No chest pain Abdomen: No pain, No nausea, No vomiting, No constipation Musculoskeletal: No joint pain Male : No dysuria Psychiatric: No depression symptoms Heme: No abnormal bleeding/bruising Endo: No fatigue Skin: No rash Medications Current Inpatient Medications Medications (Trade) Dose Ordered Sig/Dimas Route Start Time Stop Time Status Last Admin Dose Admin Heparin Sodium/ Dextrose 500 ml @ 35 mls/hr [id number] PRN IV 02/26/17 05:00 03/28/17 04:59 02/26/17 07:21 29 MLS/HR Acetaminophen (Tylenol Tab) 650 mg Q4H PRN PO 02/26/17 05:30 03/28/17 05:29 Al Hydrox/Mg Hydrox/Simethicone (Maalox Max Susp) 15 ml Q4H PRN PO 02/26/17 05:30 03/28/17 05:29 Magnesium Hydroxide (Milk Of Magnesia Susp) 30 ml Q12H PRN PO 02/26/17 05:30 03/28/17 05:29 Ondansetron HCl (Zofran Inj) 4 mg Q6H PRN IV 02/26/17 05:30 03/28/17 05:29 Nitroglycerin (Nitrostat Tab) 0.4 mg UD PRN SL 02/26/17 05:30 03/28/17 05:29 Morphine Sulfate (MoRPHine SULFATE INJ) 2 mg Q30M PRN IV 02/26/17 05:30 03/12/17 05:29 Aspirin (Ecotrin Tab) 81 mg QAM PO 02/26/17 09:00 03/28/17 08:59 02/26/17 09:26 81 MG Polyethylene (Miralax Powder Packet) 17 gm DAILY PRN PO 02/26/17 05:30 03/28/17 05:29 Amlodipine Besylate (Norvasc Tab) 10 mg DAILY PO 02/26/17 09:00 03/28/17 08:59 02/26/17 09:26 10 MG Atenolol (Tenormin Tab) 50 mg QAM PO 02/26/17 09:00 03/28/17 08:59 02/26/17 09:26 50 MG Acetaminophen/ Hydrocodone Bitart (Schlater 5/325 Tab) 1 tab Q6H PRN PO 02/26/17 05:45 03/12/17 05:44 Lorazepam (Ativan Tab) 0.5 mg HS PO 02/26/17 21:00 03/28/17 20:59 Pantoprazole Sodium (Protonix Tab) 40 mg QAM PO 02/26/17 09:00 03/28/17 08:59 02/26/17 09:27 40 MG Atorvastatin Calcium (Lipitor Tab) 40 mg QAM PO 02/26/17 09:00 03/28/17 08:59 02/26/17 09:26 40 MG Sodium Chloride 1,000 ml @ 100 mls/hr Q10H IV 02/26/17 08:45 03/28/17 08:44 02/26/17 08:45 100 MLS/HR Objective Vital Signs Date Time Temp Pulse Resp B/P (MAP) Pulse Ox O2 Delivery O2 Flow Rate FiO2 02/26/17 11:30 36.7 68 16 133/67 (89) 96 Room Air 02/26/17 11:30 Room Air 02/26/17 07:30 Room Air 02/26/17 07:30 36.7 72 16 140/66 (90) 96 Room Air 02/26/17 06:52 36.5 64 16 163/77 96 Room Air 02/26/17 05:56 66 16 140/77 96 02/26/17 05:30 66 16 140/77 96 Room Air 02/26/17 05:00 68 17 158/81 96 Room Air 02/26/17 04:30 66 19 145/80 96 Room Air 02/26/17 04:00 64 19 148/75 96 Room Air 02/26/17 03:22 Room Air 02/26/17 03:18 71 02/26/17 03:10 Room Air 02/26/17 03:10 36.7 64 18 161/94 93 Room Air Physical Exam General Appearance: WD/WN, no apparent distress Eyes: normal inspection, PERRL ENT: normal ENT inspection, hearing grossly normal Neck: supple, no JVD Respiratory/Chest: lungs clear, normal breath sounds, no respiratory distress Cardiovascular: regular rate, rhythm, no murmur Abdomen: normal bowel sounds, non tender, soft Extremities: non-tender, no pedal edema Neurologic/Psychiatric: alert, normal mood/affect, oriented x 3 Assessment and Plan 82-year-old man with history of CABG 4 vessels, found to have an NSTEMI, for cardiac cardiac catheterization later today. NSTEMI We will continue IV fluids until he gets his cardiac catheterization, which may be either this evening or tomorrow morning. He is otherwise chest pain-free, but if he doesn't chest pain we will obtain another EKG & nitroglycerin. Coronary artery disease status post CABG We will continue current management Hypertension We will continue his home medications Skin lesion on back We will refer to derm upon d/c VTE: Heparin drip CODE STATUS: Full code Dispo: Remains in Tele Resident Physician Supervision Note: I interviewed and examined the patient. Discussed with Dr. Robin and agree with findings and plan as documented in the note. Any exceptions or clarifications are listed here: Awaiting [facility], likely late today or tomorrow. He has not had recurrence of pain since admission. Continue heparin drip; monitor Cr; gentle IVF. Documented By: Wei Marshall Resident Tracking Resident Involvement: Resident Care Provided Care Provided: Adult Hospital Medicine
[2017-02-26 15:51] VITALS: BP 124/66; PULSE 66; TEMP 36.5; O2SAT 96
[2017-02-26 18:09] LABS: CKMB/CK RATIO 3.8 (0-3.0)
[2017-02-26 20:05] LABS: PARTIAL THROMBOPLASTIN RATIO 4.2
[2017-02-26 20:33] VITALS: BP 124/66; PULSE 56; TEMP 36.8; O2SAT 95
[2017-02-26] MEDS: LORAZEPAM 0.5 MG TAB PO SCH (20:56)
[2017-02-26 23:50] VITALS: BP 147/68; PULSE 58; TEMP 36.5; O2SAT 95
[2017-02-27] VITALS (15 sets, daily range): BP systolic 129–158; BP diastolic 62–80; PULSE 51–59; TEMP 36.4–37; O2SAT 91–97
[2017-02-27 00:07] LABS: CKMB/CK RATIO 3.6 (0-3.0)
[2017-02-27] MEDS: HEPARIN 25,000 UNIT/500ML D5W 500 ML IV PRN ×2 (00:24→20:43)
[2017-02-27 04:00] LABS: HEMATOCRIT 39.1 % (42-52); MEAN CELL VOLUME 94.2 fL (80-100); MEAN CORPUSCULAR HEMOGLOBIN 31.8 pg (25-34); MEAN CORPUSCULAR HGB CONC 33.8 g/dl (32-36); MEAN PLATELET VOLUME 9.6 fL (7.4-10.4); PLATELET COUNT 277 K/uL (130-400); RED BLOOD COUNT 4.15 M/uL (4.7-6.1); WHITE BLOOD COUNT 13.37 K/uL (4.8-10.8)
[2017-02-27 04:20] LABS: BUN/CREATININE RATIO 20.2 (10-20); CREATININE 1.8 mg/dl (0.60-1.40); PARTIAL THROMBOPLASTIN RATIO 3.5; POTASSIUM 4.1 mmol/L (3.5-5.1)
[2017-02-27 04:26] LABS: CKMB/CK RATIO 3.6 (0-3.0)
[2017-02-27] MEDS: SODIUM CHLORIDE 0.9% 1000ML 1,000 ML IV SCH ×4 (05:16→21:54)
[2017-02-27] MEDS: ATORVASTATIN 40 MG TAB PO SCH (09:06)
[2017-02-27] MEDS: ASPIRIN 81 MG ECTAB PO SCH (09:06)
[2017-02-27] MEDS: AMLODIPINE BESYLATE 5 MG TAB PO SCH (09:07)
[2017-02-27] MEDS: PANTOprazole SOD 40 MG TAB PO SCH (09:07)
--- NOTE | 2017-02-27 09:27 | Clinical Documentation Query ---
ROXANNE Cheng : CLINICAL DOCUMENTATION QUERY Patient is an 82 year old male admitted for evaluation and treatment of an NSTEMI. Admission BUN and creatinine were 45 mg/dl and 2.10 mg/dl. Baseline creatinine appears to be approximately 1.7-1.8 mg/dl since 2011. He is recieving IVF and being monitored by serial chemistries. As appropriate, consider clarification as suggested below. Thank you. In your clinical opinion is this patient being managed for: ( x ) Acute kidney failure, POA, on CKD stage 3 ( ) Other explanation of clinical findings (Please Explain) ( ) Unable to determine (Please Define) ( ) Need to Discuss ( ) Not Agree The medical record reflects the following clinical findings, treatment, and risk factors. Clinical Indicators: As above Treatment: IVF, serial chemistries Risk Factors: Age, medications, CAD, hypertension Please clarify and document your clinical opinion in the progress notes and discharge summary. Terms such as "probable", "suspected", "likely", "questionable", "possible", or "still to be ruled out" are acceptable. IF IN AGREEMENT, YOU MUST DOCUMENT ABOVE DIAGNOSTIC STATEMENT IN DAILY PROGRESS NOTES AND DISCHARGE SUMMARY. This document is not part of the patient's record. Thank You, Ian Raines, RN [phone]
[2017-02-27] MEDS ORDERED: DIAZEPAM 5MG TAB ONE (10:32)
--- NOTE | 2017-02-27 10:50 | Cardiology Follow-Up ---
Subjective Subjective Date of Service: Feb 27, 2017. Pt evaluation today including: conversation w/ patient, conversation w/ family , physical exam, chart review, lab review, review of studies, review of inpatient medication list Additional Details: Pt seen and examined with at bedside, no complaints overnight. Denies any recurrence of chest pain also denies sob, palpitations, lightheadedness or dizziness. Tele reviewed: sinus rhythm without arrhythmia or significant ectopy. Problem List Medical Problems: (1) Acute renal insufficiency Status: Acute (2) NSTEMI (non-ST elevated myocardial infarction) Status: Acute Review of Systems Constitutional: No fever, No chills Respiratory: No see HPI, No cough, No sputum, No wheezing, No shortness of breath, No dyspnea on exertion, No dyspnea at rest, No hemoptysis, No problem reported Cardiac: No see HPI, No chest pain, No orthopnea, No PND, No edema, No claudication, No palpitations, No problem reported Abdomen: No pain, No nausea, No vomiting, No constipation Musculoskeletal: No joint pain Male : No dysuria Psychiatric: No depression symptoms Heme: No abnormal bleeding/bruising Endo: No fatigue Skin: No rash Objective Vital Signs Last Vital Signs Documentation Date Time Temp Pulse Resp B/P (MAP) Pulse Ox O2 Delivery O2 Flow Rate FiO2 02/27/17 07:30 36.4 56 20 156/74 (101) 92 Room Air Physical Exam: General Appearance: WD/WN, no apparent distress Eyes: bilateral eyes normal inspection, bilateral eyes PERRL, bilateral eyes EOMI ENT: normal ENT inspection, hearing grossly normal, pharynx normal Neck: supple, no adenopathy, thyroid normal, no JVD Respiratory/Chest: chest non-tender, lungs clear, normal breath sounds, no respiratory distress, no accessory muscle use Cardiovascular: regular rate, rhythm, no edema, no JVD, + systolic murmur (3/6 mid to late fred, rsb, 2nd ics without raditation), + gallop/S4 Abdomen: normal bowel sounds, non tender, soft, no organomegaly, no pulsatile mass Extremities: normal inspection, no pedal edema, no calf tenderness Neurologic/Psychiatric: order make up clerk II-XII nml as tested, no motor/sensory deficits, alert, normal mood/affect, oriented x 3 Skin: normal color, warm/dry, no rash Lymphatic: no adenopathy Assessment and Plan 1. NSTEMI tolerating well remains pain free new, mild wall motion abnormality in the LCx territory preserved systolic function though trop peaked subtle ekg changes for cardiac cath today 2. CKD renal function somewhat improved with IVF will follow closely after cath avoid nephrotoxic agents 3. HTN elevated received amlodipine today atenolol held due to relative bradycardia will have to avoid diuretics and christen/arb cont to follow
[2017-02-27] MEDS ORDERED: SODIUM CHLORIDE 0.9% 1000ML 250 ML IV PRN (11:52)
[2017-02-27] MEDS ORDERED: ACETAMINOPHEN 325 MG TAB PO PRN (12:00)
[2017-02-27] MEDS ORDERED: ATROPINE SULFATE 0.1 MG/ML 5ML SYR IV PRN (12:00)
--- NOTE | 2017-02-27 12:16 | [facility] Post Operative Brief Note ---
Preliminary Procedure Note Procedure Date Feb 27, 2017. Pre-Procedure Diagnosis Non STEMI AUC Score 9 Post-Procedure Diagnosis Severe CAD Procedure(s) Performed Coronary Angiography Chimney Repairer Dr. Bladimir Palafox Vice President Payment(s) Carmelita Yoon Estimated Blood Loss 15cc Medication(s) Lidocaine 1% (local infiltration), Diphenhydramine (25mg po), Diazepam (5 mg po) Preliminary Findings Left dominant coronary anatomy Severe telida vessel disease LM 80% distal LAD 100% mid vessel LCx large with 70%+ ostial and mid Ramus small diffusely diseased RCA 100%mid SVG-OM, SVG-PL, SVG-Intermediate vessel occluded NOLASCO Patent to diagonal branch with retrograde fill of LAD Recommendations PCI without planned CABG Specimens None Fluids (cc crystalloids) 115 Anesthesia Anxiolytic pre cath only Procedural Complication(s) None 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
--- NOTE | 2017-02-27 13:53 | Family Medicine Progress Note ---
Progress Note Date of Service Feb 27, 2017. Subjective Pt evaluation today including: conversation w/ patient, conversation w/ family , physical exam Voiding: no voiding problems, no incontinence Pt underwent cath with Dr Palafox, was found to have 100% occlusion, will need stent placement. This will happen tmw and he will receive IV fluids overnight. He denies any pain, shortness of breath, or other concerns. Constitutional: No fever Respiratory: No cough, No sputum Cardiovascular: No chest pain Abdomen: No pain, No nausea Musculoskeletal: No joint pain Psychiatric: No depression symptoms Medications Current Inpatient Medications Medications (Trade) Dose Ordered Sig/Dimas Route Start Time Stop Time Status Last Admin Dose Admin Heparin Sodium/ Dextrose 500 ml @ 29 mls/hr [id number] PRN IV 02/26/17 05:00 03/28/17 04:59 02/27/17 00:24 32 MLS/HR Acetaminophen (Tylenol Tab) 650 mg Q4H PRN PO 02/26/17 05:30 03/28/17 05:29 02/26/17 20:56 650 MG Al Hydrox/Mg Hydrox/Simethicone (Maalox Max Susp) 15 ml Q4H PRN PO 02/26/17 05:30 03/28/17 05:29 Magnesium Hydroxide (Milk Of Magnesia Susp) 30 ml Q12H PRN PO 02/26/17 05:30 03/28/17 05:29 Ondansetron HCl (Zofran Inj) 4 mg Q6H PRN IV 02/26/17 05:30 03/28/17 05:29 Nitroglycerin (Nitrostat Tab) 0.4 mg UD PRN SL 02/26/17 05:30 03/28/17 05:29 Morphine Sulfate (MoRPHine SULFATE INJ) 2 mg Q30M PRN IV 02/26/17 05:30 03/12/17 05:29 02/27/17 13:45 2 MG Aspirin (Ecotrin Tab) 81 mg QAM PO 02/26/17 09:00 03/28/17 08:59 02/27/17 09:06 81 MG Polyethylene (Miralax Powder Packet) 17 gm DAILY PRN PO 02/26/17 05:30 03/28/17 05:29 Amlodipine Besylate (Norvasc Tab) 10 mg DAILY PO 02/26/17 09:00 03/28/17 08:59 02/27/17 09:07 10 MG Atenolol (Tenormin Tab) 50 mg QAM PO 02/26/17 09:00 03/28/17 08:59 02/26/17 09:26 50 MG Acetaminophen/ Hydrocodone Bitart ([place] 5/325 Tab) 1 tab Q6H PRN PO 02/26/17 05:45 03/12/17 05:44 02/27/17 12:40 1 TAB Lorazepam (Ativan Tab) 0.5 mg HS PO 02/26/17 21:00 03/28/17 20:59 02/26/17 20:56 0.5 MG Pantoprazole Sodium (Protonix Tab) 40 mg QAM PO 02/26/17 09:00 03/28/17 08:59 02/27/17 09:07 40 MG Atorvastatin Calcium (Lipitor Tab) 40 mg QAM PO 02/26/17 09:00 03/28/17 08:59 02/27/17 09:06 40 MG Sodium Chloride 1,000 ml @ 100 mls/hr Q10H IV 02/26/17 08:45 03/28/17 08:44 02/27/17 12:30 100 MLS/HR Sodium Chloride 1,000 ml @ 100 mls/hr Q10H IV 02/27/17 11:52 03/29/17 11:51 Sodium Chloride 250 ml @ 999 mls/hr Q16M PRN IV 02/27/17 11:52 03/29/17 11:51 Atropine Sulfate (Atropine Sulfate 0.1MG/Ml Inj) 0.6 mg PRN PRN IV 02/27/17 12:00 03/29/17 11:59 Objective Vital Signs Date Time Temp Pulse Resp B/P (MAP) Pulse Ox O2 Delivery O2 Flow Rate FiO2 02/27/17 13:00 36.6 51 20 157/78 (104) 92 02/27/17 12:45 36.6 54 18 158/80 (106) 91 02/27/17 12:30 55 20 149/73 (98) 91 55 02/27/17 12:15 36.7 55 18 155/75 (101) 92 Room Air 55 02/27/17 12:15 Room Air 02/27/17 12:00 66 16 156/66 (96) 95 Room Air 02/27/17 11:55 Room Air 02/27/17 11:50 Room Air 02/27/17 11:45 63 16 160/75 (103) 96 Room Air 02/27/17 08:00 Room Air 02/27/17 07:30 36.4 56 20 156/74 (101) 92 Room Air 02/27/17 05:33 36.6 55 18 149/74 95 Room Air 02/27/17 04:37 36.6 55 18 149/74 (99) 95 Room Air 02/27/17 04:00 Room Air 02/27/17 00:00 Room Air 02/26/17 23:50 36.5 58 18 147/68 (94) 95 Room Air 02/26/17 20:33 36.8 56 18 124/66 (85) 95 02/26/17 20:00 Room Air 02/26/17 16:00 Room Air 02/26/17 15:51 36.5 66 18 124/66 (85) 96 Physical Exam General Appearance: WD/WN, no apparent distress Eyes: normal inspection, PERRL ENT: hearing grossly normal Neck: supple, no JVD Respiratory/Chest: lungs clear, normal breath sounds, no respiratory distress Cardiovascular: regular rate, rhythm, no murmur Abdomen: non tender, soft Extremities: non-tender, no pedal edema Neurologic/Psychiatric: alert, normal mood/affect, oriented x 3 Skin: no rash Laboratory Results Last 24 Hours Test 02/26/17 17:15 02/26/17 19:25 02/26/17 23:27 02/27/17 03:40 Total Creatine Kinase 292 U/L 245 U/L 258 U/L Creatine Kinase MB 11.1 ng/ml 8.9 ng/ml 9.2 ng/ml Creatine Kinase MB Ratio 3.8 3.6 3.6 Troponin I 2.630 ng/ml 2.390 ng/ml 2.380 ng/ml Activated Partial Thromboplast Time 108.0 SECONDS 92.0 SECONDS Partial Thromboplastin Ratio 4.2 3.5 White Blood Count 13.37 K/uL Red Blood Count 4.15 M/uL Hemoglobin 13.2 g/dL Hematocrit 39.1 % Mean Corpuscular Volume 94.2 fL Mean Corpuscular Hemoglobin 31.8 pg Mean Corpuscular Hemoglobin Concent 33.8 g/dl RDW Standard Deviation 45.5 fL RDW Coefficient of Variation 13.2 % Platelet Count 277 K/uL Mean Platelet Volume 9.6 fL Sodium Level 140 mmol/L Potassium Level 4.1 mmol/L Chloride Level 106 mmol/L Carbon Dioxide Level 25 mmol/L Anion Gap 9.0 mmol/L Blood Urea Nitrogen 36 mg/dl Creatinine 1.80 mg/dl Est Creatinine Clear Calc Drug Dose 37.0 ml/min Estimated GFR () 40.3 Estimated GFR (Non- 34.8 BUN/Creatinine Ratio 20.2 Random Glucose 114 mg/dl Calcium Level 8.0 mg/dl CATH : Left dominant coronary anatomy Severe [place] vessel disease LM 80% distal LAD 100% mid vessel LCx large with 70%+ ostial and mid Ramus small diffusely diseased RCA 100%mid SVG-OM, SVG-PL, SVG-Intermediate vessel occluded NOLASCO Patent to diagonal branch with retrograde fill of LAD Assessment and Plan 82-year-old man with history of CABG 4 vessels, who underwent cath and was found to have severe coronary artery disease (100% LAD and RCA occlusions), for PCI tomororw with Dr Woodard. NSTEMI Continue heparin drip overnight PCI tomorrow He is otherwise chest pain-free, but if he doesn't chest pain we will obtain another EKG & nitroglycerin. We will allow a diet for now and make him NPO after midnight Coronary artery disease status post CABG We will continue current management Acute on chronic kidney disease, stage III We will continue to provide IV fluids overnight due to the amount of contrast Chreatinine as overall been improving Hypertension We will continue his home medications Skin lesion on back We will refer to derm as an outpt VTE: Heparin drip CODE STATUS: Full code Dispo: Remains in Tele Resident Physician Supervision Note: I was present with Dr. Robin during the history and exam. I discussed the case with the resident and agree with the findings and plan as documented in the note. Any exceptions or clarifications are listed here: Upon my examination the patient, he is quite comfortable. He denies chest pain or shortness of breath. Cardiology has reviewed the findings of the cardiac catheterization today and the plan for repeat catheterization with intervention tomorrow. Gentle IV fluids overnight in light of the patient's chronic kidney disease. He remains on a heparin drip. Documented By: Wei Marshall Resident Tracking Resident Involvement: Resident Care Provided Care Provided: Adult [facility] Medicine
[2017-02-27] MEDS ORDERED: NURSING VERBAL MED ORDER ONE (14:30)
[2017-02-27 17:32] LABS: PARTIAL THROMBOPLASTIN RATIO 1.7
[2017-02-27] MEDS ORDERED: HEPARIN IV BOLUS 3,000 UNIT in SYRINGE 0 ML IV SCH (20:00)
[2017-02-27] MEDS: LORAZEPAM 0.5 MG TAB PO SCH (21:44)
[2017-02-27] MEDS ORDERED: CLOPIDOGREL BISULFATE 300 MG TAB PO SCH (23:30)
[2017-02-28] VITALS (13 sets, daily range): BP systolic 103–163; BP diastolic 53–85; PULSE 56–85; TEMP 36.5–36.6; O2SAT 92–96
[2017-02-28] MEDS: HEPARIN 25,000 UNIT/500ML D5W 500 ML IV PRN (00:32)
--- NOTE | 2017-02-28 07:05 | CARDIAC CATH REPORT ---
INDICATIONS: Chest pain, non-ST segment elevation myocardial infarction. PROCEDURE: Coronary and graft angiography. CARDIAC HISTORY: The patient is an 82-year-old male, who underwent prior coronary bypass grafting in 2003, receiving a NOLASCO graft to LAD, saphenous vein grafts x3 to the obtuse marginal, intermediate vessel and posterolateral branch per prior records, presented with symptoms of new onset chest pain and discomfort with associated elevation in troponin enzymes consistent with non-ST elevation myocardial infarction. He had begun on initial medical therapies and has been referred now without signs of heart failure for diagnostic cardiac catheterization. Prestudy echocardiography demonstrated new wall motion abnormalities in the left circumflex distribution. ACCESS: Right femoral artery. CATHETERS: A 5-Filipino sheath, 5-Filipino JL4, 5-Filipino 3DRC, 5-Filipino right coronary artery bypass graft catheter, 5-Filipino left coronary bypass graft catheter. CONTRAST: Nonionic x198 mL. IV FLUIDS: Normal saline x115 mL. RADIATION EXPOSURE: 17.8 minutes fluoroscopy and 1516 milligrays, DAP score [id number]. ANESTHESIA: None. The patient received preprocedure anxiolytic with Valium 5 mg p.o. and Benadryl 25 mg p.o. MEDICATIONS: Local anesthesia at the access site was performed with use of 1% lidocaine. COMPLICATIONS: None. RESULTS: CORONARY ANGIOGRAPHY: Left dominant coronary anatomy is present. LEFT MAIN: Left main is of moderate length and trifurcates to give rise to left anterior descending, a bifurcating ramus intermedius in the left circumflex. Within the left main, there is an 80% narrowing of the distal left main. LEFT ANTERIOR DESCENDING: Left anterior descending is type 3 in distribution. It has several septal branches in its proximal portion and then is occluded. The distal vessel is seen filling via NOLASCO graft to the LAD with excellent distal runoff and only moderate narrowing of 30-40% in the mid and distal left anterior descending as well as a large diagonal branch. LEFT CIRCUMFLEX: Left circumflex is dominant in distribution and gives rise to 2 marginal branches, and along the AV groove, 2 posterolateral branches in the PDA. Within the left circumflex, there is an extension of the left main disease in its origin, narrowing it by 70%. There is an additional 78% or greater narrowing proximal and distal to the large first marginal branch, moderate narrowing of 50 % in the AV groove portion of the circumflex. RAMUS INTERMEDIUS: The ramus intermedius is diffusely diseased bifurcating vessel. RIGHT CORONARY ARTERY: The right coronary artery is a nondominant vessel, which is occluded in its mid portion and demonstrates a right ventricular branch and a conus branch shortly after its origin. NOLASCO graft to the LAD: This is a large caliber graft and anastomosed to a sub-branch of the large diagonal branch and fills the large diagonal branch, antegrade and retrograde as well as the left anterior descending with excellent flow. SAPHENOUS VEIN GRAFT: To the intermediate vessel, occluded. SAPHENOUS VEIN GRAFT: To the circumflex obtuse marginal, occluded. SAPHENOUS VEIN GRAFT: To the posterolateral branch, occluded. HEMODYNAMICS: Initial aortic root pressure is 151/63 with a mean of 96. Aortic root pressure at the end of the procedure is 156/67 with a mean of 102. FINAL IMPRESSION: 1. Left dominant coronary anatomy. 2. Severe teller vessel coronary artery disease with 80% distal left main, serial 70-80% stenosis in the proximal and mid left circumflex. 3. A 100% occlusion of the left anterior descending in its proximal third with the distal vessel filling NOLASCO graft to the LAD. 4. Ramus intermedius diffusely diseased. 5. A chronically occluded right coronary artery. 6. A widely patent NOLASCO graft with anastomosis to the diagonal branch with retrograde and antegrade filling the diagonal and the left anterior descending. 7. Occlusion of all vein grafts. RECOMMENDATIONS: The patient will be reassessed for consideration of left main protected intervention after a period of observation and hydration given chronic renal insufficiency and contrast administered. The patient is agreeable to plan.
[2017-02-28] MEDS: SODIUM CHLORIDE 0.9% 1000ML 1,000 ML IV SCH (07:20)
[2017-02-28 08:58] LABS: HEMATOCRIT 43.3 % (42-52); MEAN CELL VOLUME 93.7 fL (80-100); MEAN CORPUSCULAR HEMOGLOBIN 31.8 pg (25-34); MEAN CORPUSCULAR HGB CONC 33.9 g/dl (32-36); MEAN PLATELET VOLUME 9.4 fL (7.4-10.4); PLATELET COUNT 295 K/uL (130-400); RED BLOOD COUNT 4.62 M/uL (4.7-6.1); WHITE BLOOD COUNT 10.88 K/uL (4.8-10.8)
[2017-02-28] MEDS: AMLODIPINE BESYLATE 5 MG TAB PO SCH (09:00)
[2017-02-28] MEDS ORDERED: CLOPIDOGREL BISULFATE 75 MG TAB PO SCH (09:00)
--- NOTE | 2017-02-28 09:18 | Cardiology Follow-Up ---
Subjective Subjective Date of Service: Feb 28, 2017. Pt evaluation today including: conversation w/ patient, conversation w/ family , physical exam, chart review, lab review, review of studies, review of inpatient medication list Additional Details: Pt seen and examined with and son at bedside. Denies cp, sob, palpitations , lightheadedness or dizziness. A little sore at groin site. Tele reviewed: sinus rhythm with a 6 beat run of nonsustained ventricular tachycardia at 0009. Problem List Medical Problems: (1) Acute renal insufficiency Status: Acute (2) NSTEMI (non-ST elevated myocardial infarction) Status: Acute Review of Systems Constitutional: No fever Respiratory: No see HPI, No cough, No sputum, No wheezing, No shortness of breath, No dyspnea on exertion, No dyspnea at rest, No hemoptysis, No problem reported Cardiac: No see HPI, No chest pain, No orthopnea, No PND, No edema, No claudication, No palpitations, No problem reported Abdomen: No pain, No nausea Musculoskeletal: No joint pain Male : No dysuria Psychiatric: No depression symptoms Heme: No abnormal bleeding/bruising Endo: No fatigue Skin: No rash Objective Vital Signs Last Vital Signs Documentation Date Time Temp Pulse Resp B/P (MAP) Pulse Ox O2 Delivery O2 Flow Rate FiO2 02/28/17 07:38 36.6 57 16 163/85 (111) 94 02/28/17 07:25 Room Air 02/27/17 19:22 2.0 Physical Exam: General Appearance: WD/WN, no apparent distress Eyes: bilateral eyes normal inspection, bilateral eyes PERRL, bilateral eyes EOMI ENT: normal ENT inspection, hearing grossly normal, pharynx normal Neck: supple, no adenopathy, thyroid normal, no JVD, no carotid bruits, trachea midline Respiratory/Chest: chest non-tender, lungs clear, normal breath sounds, no respiratory distress Cardiovascular: regular rate, rhythm, no edema, no JVD, + systolic murmur (3/6 mid to late fred, rsb, 2nd ics), + gallop/S4 Abdomen: normal bowel sounds, non tender, soft, no organomegaly Extremities: non-tender, normal inspection, no pedal edema, no calf tenderness Neurologic/Psychiatric: seo analyst II-XII nml as tested, no motor/sensory deficits, alert, normal mood/affect, oriented x 3 Skin: normal color, warm/dry, no rash Lymphatic: no adenopathy Assessment and Plan 1. NSTEMI tolerating well remains pain free cath revealed a patent NOLASCO graft with all vein grafts occluded plan for protected left main pci today await renal function which will dictate timing of procedure 2. CKD AM labs not back yet has been getting IVF avoid nephrotoxic agents 3. HTN elevated received amlodipine today will give hydralazine 10mg po x1 now follow avoid nephrotoxic agents
[2017-02-28 09:23] LABS: BUN/CREATININE RATIO 17.1 (10-20); CALCIUM 8.6 mg/dl (8.5-10.1); CREATININE 1.7 mg/dl (0.60-1.40); PARTIAL THROMBOPLASTIN RATIO 3.1; POTASSIUM 3.8 mmol/L (3.5-5.1)
[2017-02-28] MEDS ORDERED: HydrALAZINE 10 MG TAB PO STA (09:26)
[2017-02-28] MEDS: ASPIRIN 81 MG ECTAB PO SCH (09:55)
[2017-02-28] MEDS ORDERED: NiCARDipine HCL INJ 2.5 MG/ML 10 ML AMP ONE (10:16)
[2017-02-28] MEDS ORDERED: MIDAZOLAM HCL 1 MG/ML 2ML VIAL ONE ×3 (10:16→12:33)
[2017-02-28] MEDS ORDERED: HEPARIN SOD (PORCINE) 1000 UNIT/ML 10 ML VIAL ONE ×2 (10:16→12:07)
[2017-02-28] MEDS ORDERED: FENTANYL CITRATE INJ 50 MCG/1 ML 2 ML VIAL ONE ×3 (10:16→12:56)
[2017-02-28] MEDS ORDERED: NITROGLYCERIN/D5W 100MCG/ML 20ML SYR ONE (10:17)
--- NOTE | 2017-02-28 11:27 | Family Medicine Progress Note ---
Progress Note Date of Service Feb 28, 2017. Subjective Pt evaluation today including: conversation w/ patient Pt seen prior to cath - denied any pain or concerns. [place] ok about upcoming procedure. Constitutional: No chills ENT: No hearing loss Respiratory: No cough Cardiovascular: No chest pain Abdomen: No pain, No nausea All Other Systems: Reviewed and Negative Medications Current Inpatient Medications Medications (Trade) Dose Ordered Sig/Dimas Route Start Time Stop Time Status Last Admin Dose Admin Heparin Sodium/ Dextrose 500 ml @ 29 mls/hr [id number] PRN IV 02/26/17 05:00 03/28/17 04:59 02/28/17 00:32 32 MLS/HR Acetaminophen (Tylenol Tab) 650 mg Q4H PRN PO 02/26/17 05:30 03/28/17 05:29 02/26/17 20:56 650 MG Al Hydrox/Mg Hydrox/Simethicone (Maalox Max Susp) 15 ml Q4H PRN PO 02/26/17 05:30 03/28/17 05:29 Magnesium Hydroxide (Milk Of Magnesia Susp) 30 ml Q12H PRN PO 02/26/17 05:30 03/28/17 05:29 Ondansetron HCl (Zofran Inj) 4 mg Q6H PRN IV 02/26/17 05:30 03/28/17 05:29 Nitroglycerin (Nitrostat Tab) 0.4 mg UD PRN SL 02/26/17 05:30 03/28/17 05:29 Morphine Sulfate (MoRPHine SULFATE INJ) 2 mg Q30M PRN IV 02/26/17 05:30 03/12/17 05:29 02/27/17 13:45 2 MG Aspirin (Ecotrin Tab) 81 mg QAM PO 02/26/17 09:00 03/28/17 08:59 02/28/17 09:55 81 MG Polyethylene (Miralax Powder Packet) 17 gm DAILY PRN PO 02/26/17 05:30 03/28/17 05:29 Amlodipine Besylate (Norvasc Tab) 10 mg DAILY PO 02/26/17 09:00 03/28/17 08:59 02/27/17 09:07 10 MG Atenolol (Tenormin Tab) 50 mg QAM PO 02/26/17 09:00 03/28/17 08:59 02/26/17 09:26 50 MG Acetaminophen/ Hydrocodone Bitart ([place] 5/325 Tab) 1 tab Q6H PRN PO 02/26/17 05:45 03/12/17 05:44 02/27/17 12:40 1 TAB Lorazepam (Ativan Tab) 0.5 mg HS PO 02/26/17 21:00 03/28/17 20:59 02/27/17 21:44 0.5 MG Pantoprazole Sodium (Protonix Tab) 40 mg QAM PO 02/26/17 09:00 03/28/17 08:59 02/27/17 09:07 40 MG Atorvastatin Calcium (Lipitor Tab) 40 mg QAM PO 02/26/17 09:00 03/28/17 08:59 02/27/17 09:06 40 MG Sodium Chloride 1,000 ml @ 100 mls/hr Q10H IV 02/27/17 11:52 03/29/17 11:51 02/28/17 07:20 100 MLS/HR Sodium Chloride 250 ml @ 999 mls/hr Q16M PRN IV 02/27/17 11:52 03/29/17 11:51 Atropine Sulfate (Atropine Sulfate 0.1MG/Ml Inj) 0.6 mg PRN PRN IV 02/27/17 12:00 03/29/17 11:59 Clopidogrel Bisulfate (plAVix TAB) 75 mg QAM PO 02/28/17 09:00 03/30/17 08:59 Objective Vital Signs Date Time Temp Pulse Resp B/P (MAP) Pulse Ox O2 Delivery O2 Flow Rate FiO2 02/28/17 07:38 36.6 57 16 163/85 (111) 94 02/28/17 07:25 Room Air 02/28/17 04:01 36.5 56 20 162/82 (108) 94 Room Air 02/28/17 04:00 Room Air 02/28/17 00:00 Room Air 02/27/17 23:52 36.4 59 18 146/79 (101) 92 Room Air 02/27/17 20:00 Room Air 02/27/17 19:22 36.5 58 18 155/80 (105) 91 Nasal Cannula 2.0 02/27/17 17:13 37.0 56 20 129/75 (93) 95 Room Air 02/27/17 16:20 59 18 143/75 (97) 93 Room Air 02/27/17 16:00 Room Air 02/27/17 15:20 55 18 135/69 (91) 95 Room Air 02/27/17 14:54 36.4 56 18 145/71 (95) 96 Nasal Cannula 3.0 02/27/17 13:45 36.7 57 18 152/75 (100) 97 Nasal Cannula 2.0 57 02/27/17 13:15 57 20 158/62 (94) 97 Nasal Cannula 2.0 57 02/27/17 13:00 36.6 51 20 157/78 (104) 92 02/27/17 12:45 36.6 54 18 158/80 (106) 91 02/27/17 12:30 55 20 149/73 (98) 91 55 02/27/17 12:15 36.7 55 18 155/75 (101) 92 Room Air 55 02/27/17 12:15 Room Air 02/27/17 12:00 66 16 156/66 (96) 95 Room Air 02/27/17 11:55 Room Air 02/27/17 11:50 Room Air 02/27/17 11:45 63 16 160/75 (103) 96 Room Air Physical Exam General Appearance: WD/WN, no apparent distress Eyes: normal inspection, PERRL ENT: hearing grossly normal Neck: supple, no JVD Respiratory/Chest: lungs clear Cardiovascular: regular rate, rhythm, no murmur Abdomen: normal bowel sounds, non tender, soft Extremities: non-tender, no pedal edema Neurologic/Psychiatric: alert, normal mood/affect, oriented x 3 Skin: no rash Laboratory Results Last 24 Hours Test 02/27/17 17:11 02/28/17 02:00 02/28/17 08:40 Activated Partial Thromboplast Time 43.6 SECONDS 103.5 SECONDS 79.3 SECONDS Partial Thromboplastin Ratio 1.7 4.0 3.1 White Blood Count 10.88 K/uL Red Blood Count 4.62 M/uL Hemoglobin 14.7 g/dL Hematocrit 43.3 % Mean Corpuscular Volume 93.7 fL Mean Corpuscular Hemoglobin 31.8 pg Mean Corpuscular Hemoglobin Concent 33.9 g/dl RDW Standard Deviation 45.2 fL RDW Coefficient of Variation 13.2 % Platelet Count 295 K/uL Mean Platelet Volume 9.4 fL Sodium Level 137 mmol/L Potassium Level 3.8 mmol/L Chloride Level 105 mmol/L Carbon Dioxide Level 21 mmol/L Anion Gap 11.0 mmol/L Blood Urea Nitrogen 29 mg/dl Creatinine 1.70 mg/dl Est Creatinine Clear Calc Drug Dose 39.2 ml/min Estimated GFR () 43.2 Estimated GFR (Non- 37.3 BUN/Creatinine Ratio 17.1 Random Glucose 111 mg/dl Calcium Level 8.6 mg/dl Assessment and Plan 82-year-old man with history of CABG 4 vessels, who underwent cath and was found to have severe coronary artery disease (100% LAD and RCA occlusions), for PCI this morning. NSTEMI Continued heparin drip overnight PCI today - will continue to follow Coronary artery disease status post CABG We will continue current management Acute on chronic kidney disease, stage III Cr improved, now 1.7 Hypertension We will continue his home medications Skin lesion on back We will refer to derm as an outpt VTE: Heparin drip CODE STATUS: Full code Dispo: Remains in Tele, for cath today Resident Physician Supervision Note: I interviewed and examined the patient. Discussed with Dr. Robin and agree with findings and plan as documented in the note. Any exceptions or clarifications are listed here: I also discuss the patient's care with cardiology. Left heart catheterization with intervention planned for later today. Documented By: Wei Marshall Resident Tracking Resident Involvement: Resident Care Provided Care Provided: Adult Hospital Medicine
[2017-02-28] MEDS ORDERED: DOPamine 400MG / 250ML D5W ONE (11:44)
[2017-02-28] MEDS ORDERED: EPTIFIBATIDE 2 MG/ML 10 ML VIAL IV ONE (12:33)
[2017-02-28] MEDS ORDERED: EPTIFIBATIDE 0.75 MG/ML 75MG VIAL IV ONE (12:33)
[2017-02-28] MEDS ORDERED: NITROGLYCERIN/D5W 100 MCG/ML BTL ONE (13:11)
--- NOTE | 2017-02-28 13:49 | Procedure Note ---
Pre-Mod Sedation Assessment General Date of Moderate Sedation: Feb 28, 2017. Vital Signs: Vital Signs Past 12 Hours Date Time Temp Pulse Resp B/P (MAP) Pulse Ox O2 Delivery O2 Flow Rate FiO2 02/28/17 07:38 36.6 57 16 163/85 (111) 94 02/28/17 07:25 Room Air 02/28/17 04:01 36.5 56 20 162/82 (108) 94 Room Air 02/28/17 04:00 Room Air Review Cardiovascular: regular rate, rhythm, no edema Abdomen: normal bowel sounds, non tender Lungs: chest non-tender, lungs clear Pre-Sedation Airway Assessment Oral Cavity: WNL Short Thick Neck: No Hx of Sleep Apnea: No Smoking Status: Never Smoker Mallampati Classification: Class III ASA Classification: Class III Procedure Planning Contraindications-for Mod Sed: None Yes Notes The planned sedation has been discussed with the patient and consent obtained. I have identified the patient, determined the appropriateness of sedation and have assessed the patient immediately prior to the procedure. All medicine(s) and interventions are by my order.
--- NOTE | 2017-02-28 13:51 | Procedure Note ---
Post-Mod Sedation Assessment General Date of Moderate Sedation Feb 28, 2017. Vital Signs: Vital Signs Past 12 Hours Date Time Temp Pulse Resp B/P (MAP) Pulse Ox O2 Delivery O2 Flow Rate FiO2 02/28/17 07:38 36.6 57 16 163/85 (111) 94 02/28/17 07:25 Room Air 02/28/17 04:01 36.5 56 20 162/82 (108) 94 Room Air 02/28/17 04:00 Room Air Review - Discharge Criteria Vital Signs Stable: Yes Alert/Oriented/Conversant: Yes Returned to Baseline Mental St: Yes Nausea Absent/Minimal: Yes Pain/Discomfort/Absent/Minimal: Yes Normal/Baseline Respirations: Yes Active Bleeding?: No Pt Received D/C Instructions: N/A Specific Proced. D/C Criteria Distal Pulses Present (Cardiac: Yes Groin site assessed-Card Cath: Yes Voided Prior To Discharge: N/A Discharged Patients Adult Escort/Transportation: Yes
[2017-02-28] MEDS ORDERED: SODIUM CHLORIDE 0.9% 1000ML 1,000 ML IV SCH (14:45)
[2017-02-28] MEDS ORDERED: NITROGLYCERIN/D5W 100 MCG/ML 250 ML IV PRN (14:45)
[2017-02-28 15:03] LABS: BASO % 0.1 %; BASO ABS # 0.01 K/uL (0-0.2); EOS % 0.5 %; HEMATOCRIT 37.8 % (42-52); IG% 0.5 %; LYMPH % 5.6 %; LYMPH ABS # 0.83 K/uL (1.2-3.4); MEAN CELL VOLUME 93.6 fL (80-100); MEAN CORPUSCULAR HEMOGLOBIN 31.7 pg (25-34); MEAN PLATELET VOLUME 9.3 fL (7.4-10.4); MONO % 10.5 %; NEUT % 82.8 %; PLATELET COUNT 287 K/uL (130-400); RED BLOOD COUNT 4.04 M/uL (4.7-6.1); WHITE BLOOD COUNT 14.91 K/uL (4.8-10.8)
[2017-02-28 15:05] LABS: COMPLETE YES; MEAN CORPUSCULAR HGB CONC 33.9 g/dl (32-36)
--- NOTE | 2017-02-28 16:01 | Discharge Instructions ---
Discharge Instructions Date of Service Feb 28, 2017. Admission Reason for Admission: Nstemi Discharge Discharge Diagnosis / Problem: CAD Discharge Goals Goal(s): Decrease discomfort, Improve function, Increase independence, Improve disease control Activity Recommendations Activity Limitations: as noted below As advised after discharge from [facility]. . Instructions / Follow-Up Instructions / Follow-Up As per discharge from facility Current Hospital Diet Patient's current hospital diet: AHA Diet (Heart Healthy) Discharge Diet Recommended Diet: AHA Diet (Heart Healthy) Pending Studies Studies pending at discharge: no Laboratory Results Last 24 Hours Test 02/27/17 17:11 02/28/17 02:00 02/28/17 08:40 02/28/17 14:56 Activated Partial Thromboplast Time 43.6 SECONDS 103.5 SECONDS 79.3 SECONDS Partial Thromboplastin Ratio 1.7 4.0 3.1 White Blood Count 10.88 K/uL 14.91 K/uL Red Blood Count 4.62 M/uL 4.04 M/uL Hemoglobin 14.7 g/dL 12.8 g/dL Hematocrit 43.3 % 37.8 % Mean Corpuscular Volume 93.7 fL 93.6 fL Mean Corpuscular Hemoglobin 31.8 pg 31.7 pg Mean Corpuscular Hemoglobin Concent 33.9 g/dl 33.9 g/dl RDW Standard Deviation 45.2 fL 45.4 fL RDW Coefficient of Variation 13.2 % 13.2 % Platelet Count 295 K/uL 287 K/uL Mean Platelet Volume 9.4 fL 9.3 fL Sodium Level 137 mmol/L Potassium Level 3.8 mmol/L Chloride Level 105 mmol/L Carbon Dioxide Level 21 mmol/L Anion Gap 11.0 mmol/L Blood Urea Nitrogen 29 mg/dl Creatinine 1.70 mg/dl Est Creatinine Clear Calc Drug Dose 39.2 ml/min Estimated GFR () 43.2 Estimated GFR (Non- 37.3 BUN/Creatinine Ratio 17.1 Random Glucose 111 mg/dl Calcium Level 8.6 mg/dl Neutrophils (%) (Auto) 82.8 % Lymphocytes (%) (Auto) 5.6 % Monocytes (%) (Auto) 10.5 % Eosinophils (%) (Auto) 0.5 % Basophils (%) (Auto) 0.1 % Neutrophils # (Auto) 12.37 K/uL Lymphocytes # (Auto) 0.83 K/uL Monocytes # (Auto) 1.56 K/uL Eosinophils # (Auto) 0.07 K/uL Basophils # (Auto) 0.01 K/uL Immature Granulocyte % (Auto) 0.5 % Immature Granulocyte # (Auto) 0.07 K/uL Medical Emergencies . Who to Call and When: Medical Emergencies: If at any time you feel your situation is an emergency, please call 911 immediately. . Non-Emergent Contact Non-Emergency issues call your: Primary Care Provider, Maintenance Director Call Non-Emergent contact if: temperature is above 100.5, your pain is not controlled, your pain is worsening, your pain is unusual for you, your pain is concerning you . . "Provider Documentation" section prepared by Wei Marshall. . VTE Core Measure Inpt VTE Proph given/why not?: Unfractionated heparin SQ (infusion)
--- NOTE | 2017-02-28 16:21 | ECHOCARDIOGRAM REPORT ---
*NOTICE TO RECEIVING [employer] AGENCY This information is strictly Confidential and protected under [place] law. [place] law prohibits you from making any further disclosure of this information unless further disclosure is expressly permitted by the written consent of the person to whom it pertains or is authorized by law. A general authorization for the release of medical or other information is not sufficient for this purpose. Hospital accepts no responsibility if the information is made available to any other person, INCLUDING THE PATIENT. Interpretation Summary * Name: JUAN DAY Study Date: 02/28/2017 12:54 PM BP: 163/85 mmHg * Patient Location: [facility] HR: 57 * : 1935 (M/d/yyyy) Gender: Male * Age: 82 yrs Ethnicity: CA * Ordering Physician: MD Ambrosio Woodard MD * Performed By: Jessica López RDCS * * Reason For Study: NSTEMI * -- Conclusions -- * Limited views were obtained. * Left ventricular systolic function is normal. * There are regional wall motion abnormalities as specified. * Compared to a study from two days ago, the wall motion appears somewhat worse. Overall LV function is similar. Procedure Details * A two-dimensional transthoracic echocardiogram was performed. * A contrast injection of Definity was performed to improve assessment of LV function. * Contrast was injected into an intravenous site in the left arm. * One vial of Definity ultrasound contrast was diluted in normal saline to a total volume of 10 ml. A total of '2' ml of solution was administered during imaging. * Lot # [id number] of Definity utilized for procedure. * Expiration date MAR 25. * The attending nurse who injected the contrast agent was Jacquelyn Guevara RN. * Limited views were obtained. Left Ventricle * Left ventricular systolic function is normal. * There are regional wall motion abnormalities as specified. * Basal inferior wall is akinetic and the basal posterior wall is dyskinetic. MMode 2D Measurements and Calculations IVSd 0.90 cm LVIDd 3.5 cm LVIDs 2.8 cm LVPWd 0.71 cm IVS/LVPW 1.3 FS 18.9 % EDV(Teich) 49.8 ml ESV(Teich) 29.9 ml EF(Teich) 39.9 % EDV(cubed) 41.8 ml ESV(cubed) 22.3 ml EF(cubed) 46.6 % LV mass(C)d 75.0 grams SV(Teich) 19.9 ml SV(cubed) 19.5 ml LVAd ap4 40.2 cm\S\2 LVLd ap4 8.4 cm EDV(MOD-sp4) 152.4 ml EDV(sp4-el) 163.0 ml LVAs ap4 23.8 cm\S\2 LVLs ap4 6.6 cm ESV(MOD-sp4) 70.3 ml ESV(sp4-el) 73.4 ml EF(MOD-sp4) 53.9 % EF(sp4-el) 55.0 % LVAd ap2 35.9 cm\S\2 LVLd ap2 8.2 cm EDV(MOD-sp2) 126.0 ml EDV(sp2-el) 133.5 ml LVAs ap2 21.7 cm\S\2 LVLs ap2 6.6 cm ESV(MOD-sp2) 60.8 ml ESV(sp2-el) 60.0 ml EF(MOD-sp2) 51.8 % EF(sp2-el) 55.0 % LVLd %diff -2.99 % EDV(MOD-bp) 137.9 ml LVLs %diff 1.2 % ESV(MOD-bp) 65.3 ml EF(MOD-bp) 52.6 % SV(MOD-sp4) 82.1 ml SV(MOD-sp2) 65.3 ml SV(MOD-bp) 72.6 ml SV(sp4-el) 89.6 ml SV(sp2-el) 73.5 ml
[2017-02-28] MEDS: PANTOprazole SOD 40 MG TAB PO SCH (17:02)
[2017-02-28] MEDS: ATORVASTATIN 40 MG TAB PO SCH (17:09)
--- NOTE | 2017-02-28 17:37 | Discharge Summary ---
Discharge Summary Date of Service Feb 28, 2017. (Kirsten Robin MD) Discharge Summary Admission Date: Feb 26, 2017 at 05:30 Discharge Date: Feb 28, 2017 Discharge Disposition: Acute care facility ([facility]) Principal Diagnosis: NSTEMI Problems/Secondary Diagnoses: CAD s/p CABG Immunizations: History of Tetanus Vaccine?: Yes History of Pneumococcal: 2003 History of Hepatitis B Vaccine: No Procedures: Cardiac catheterization on 02/27 and PCI on 02/28 Indication: High-risk NSTEMI Access: 6Fr Right Radial Artery Catheters: EBU 3.75 Findings: Patient underwent diagnostic coronary angiography yesterday with Dr. aPlafox. Please see his cath report for full details. Patient found to have an 80% left main, 70% proximal circumflex and 80% distal circumflex lesions. Decision made to proceed with PCI after hydration overnight -- PCI -- Antithrombotic therapy: Heparin, Integrilin bolus, clopidogrel Procedure: - LM cannulated with EBU 3.75 guide - Attempted to wire into distal circumflex but in the setting of >90 degree take -off of circumflex and proximal circ stenosis which appeared more significant than initially appreciated ( >90%) unable to pass wire into distal vessel despite use of multiple wires (whisper, harbor pilot 50 , luge). - Mid procedure noted to have obstruction of proximal left main - Using a 2.0 and 2.5 RX balloon on wire into occluded LAD flow re-established. - Hazyness noted in proximal LAD concerning for possible dissection. - Patient with diffuse pain including chest pain free but remained hemodynamically stable. - Stat Echo showed no effusion, and preserved LV function with some inferior hypokinesis. - Attempted again to pass wire into distal circumflex, wire went into small OM branches but could never be passed across proximal lesion. - As had NIRU 3 flow, hemodynamically/electrically stable decision made to abort procedure. Arterial Closure: TR Band Summary: 1. Unsuccessful PCI of LM/circumflex. ORGAN PIPE MAKER METAL alone of distal left main but unable to intervene on severe proximal/distal circumflex. Recommendations: - Transfer to ICU - Continue heparin, nitroglycerin infusion. - Continue DAPT - Feel patient would be best served by transfer to [facility] for continued monitoring in case further emergent procedure needed. - Case discussed with Dr. Palafox and Dr. Alvarez in [place]. Consultations: Cardiology - Javy Bryan and Vance (Kirsten Robin MD) Medication Reconciliation Continued Medications: Amlodipine (Norvasc) 10 Mg Tab 10 MG PO DAILY, TAB Aspirin Enteric Coated (Ecotrin Or Generic) 81 Mg Tab 81 MG PO QAM Atenolol (Tenormin) 25 Mg Tab 50 MG PO QAM, 0 Refills Hctz/Losartan (Hyzaar 12.5MG/50MG) Tab 1 TAB PO QAM Hydrocodone/Acetaminophen 5MG/325MG (Teachey 5MG/325MG) Tab 1 TABLET PO UD PRN for Pain Lorazepam (Ativan) 1 Mg Tab 0.5 MG PO HS Omeprazole (Prilosec) 20 Mg Capcr 20 MG PO QAM Simvastatin (Zocor) 20 Mg Tab 20 MG PO QPM Discharge Exam Review of Systems: Constitutional: No fever, No chills, No sweats Eyes: No worsening of vision ENT: No hearing loss Respiratory: No cough, No sputum, No wheezing Cardiovascular: No chest pain Abdomen: No pain, No nausea, No vomiting Musculoskeletal: No joint pain, No muscle pain Genitourinary - Male: No hematuria, No dysuria, No urinary frequency Neurologic: No memory loss, No paralysis, No weakness Psychiatric: No depression symptoms Endocrine: No fatigue Integumentary: No rash Physical Exam: General Appearance: WD/WN, no apparent distress Eyes: normal inspection, PERRL ENT: hearing grossly normal Neck: supple, no JVD Respiratory/Chest: lungs clear, normal breath sounds, no respiratory distress Cardiovascular: no edema, no murmur, normal peripheral pulses Abdomen / GI: normal bowel sounds, non tender, soft Extremities: no calf tenderness, no pedal edema Neurologic/Psychiatric: alert, normal mood/affect, normal reflexes, oriented x 3 Skin: no rash (Kirsten Robin MD) Hospital Course HPI: This is a pleasant 82-year-old male, with history of coronary artery disease, CABG 4, hypertension, hyperlipidemia, chronic back pain, osteoarthritis, who presents to ED brought by ambulance after rinsing acute onset chest pain today. The patient states that he was in his usual state of health, he was out on his property, clearing branches from the forest, at approximately 1 PM yesterday afternoon. He notes that as he is carrying a pile of branches, and walking up a small hill when he began experiencing a sternal pressure type sensation, that radiated to the neck and jaw. He states that he did have some palpitations, but denies having any lightheadedness or dizziness, shortness of breath, syncope , or lower extremity edema. He also denies cough or wheezing. After resting for proximal with 30 minutes, he notes that his symptoms at subsided completely. He continued on with his day aneurysm was uneventful until approximately 10 PM last night when he tried to get to bed. Soon as he went to bed he noticed that the chest pressure and return, albeit slightly less severe than what he experienced earlier in the day. Unfortunate chest pressure continued on until approximately 1 AM this morning and at that time he made the decision to call the ambulance and be brought to the hospital for further evaluation. Of note, the patient states that he recently was right rotator cuff and was seen yesterday morning by Dr. Chery for further evaluation. At that time he was given a cortisone injection in the right shoulder. Patient notes that he has a history of acute CT. In 2003 he had quadruple bypass at [facility]. He follows with Dr. Hargrove. Last outpatient follow-up was in October of this year, he notes that no changes were made to his medications at that time. His last echocardiogram was done in 2016. These are in the [facility] records and are therefore not available. In general the patient notes that he does not get exertional chest pain or shortness of breath. He is quite active, stating that he walks on a treadmill daily up until proximally 2 months ago when chronic lower back pain prevented him from doing this activity daily. His other risk factors include hypertension, and hyperlipidemia. States that he has been noncompliant with his statin for several months, as his PCP noted that he did not need it anymore. He is a lifelong nonsmoker and does not drink alcohol. He does have a significant family history of CT, with one brother who of a CT at the age of 72, 1 brother who had a CABG in his 60s, and another brother who had 4 stents in his 60s. En route to the ED, the patient was given 324 mg aspirin chew. In the ED he had an elevated troponin of 0.259, and nonspecific ST-T wave changes. He was started on heparin infusion. At this time the patient notes that he is chest pain-free. HOSPITAL COURSE: 82-year-old man with history of CABG 4 vessels, who underwent cath and was found to have severe coronary artery disease (100% LAD and RCA occlusions), for transfer to [place] for further PCI. NSTEMI Continued heparin drip PCI today - Results as above Coronary artery disease status post CABG Remains on beta richard, statin, Aspirin, and YANDEL-i Acute on chronic kidney disease, stage III Cr improved, now 1.7 Hypertension We will continue his home medications Skin lesion on back Refer to derm as an outpt VTE: Heparin drip CODE STATUS: Full code Dispo: Remains in ICU for transfer to [place] Total Time Spent: Greater than 30 minutes This includes examination of the patient, discharge planning, medication reconciliation, and communication with other providers. (Kirsten Robin MD) Resident Physician Supervision Note: I was present with Dr. Robin during the history and exam. I discussed the case with the resident and agree with the findings and plan as documented in the note. Any exceptions or clarifications are listed here: I also discussed the case with Dr. Woodard, cardiology. I saw the patient both in the morning and post cardiac catheterization at which time I discussed the risks and benefits of transfer for a higher level of care. The patient had a good understanding of his condition given his previous discussion with cardiology and was agreeable with transfer. Documented By: Wei Marshall Total Time Spent: Greater than 30 minutes Total time spent on this transfer was 45 minutes. (Wei Marshall.,D.O.) Discharge Instructions Please refer to the electronic Patient Visit Report (Discharge Instructions) for additional information. (Kirsten Robin MD) Additional Copies To Milagros Villela C.R.N.P Resident Tracking Resident Involvement: Resident Care Provided Care Provided: [facility] (Kirsten Robin MD)
--- NOTE | 2017-02-28 17:49 | Cardiac Catheterization ---
Procedure Note Procedure Date Feb 28, 2017. Pre-Procedure Diagnosis Non STEMI AUC Score 8 Post-Procedure Diagnosis Severe CAD, Unsuccessful PCI Procedure(s) Performed Coronary Angiography, PTCA Orientor Vance Record Filing Clerk(s) Angel Estimated Blood Loss 20 Medication(s) Fentanyl, Heparin, Integrilin, Nicardipine, Nitroglycerin, Versed, Lidocaine 1% Summary of Findings Indication: High-risk NSTEMI Access: 6Fr Right Radial Artery Catheters: EBU 3.75 Findings: Patient underwent diagnostic coronary angiography yesterday with Dr. Palafox. Please see his cath report for full details. Patient found to have an 80% left main, 70% proximal circumflex and 80% distal circumflex lesions. Decision made to proceed with PCI after hydration overnight -- PCI -- Antithrombotic therapy: Heparin, Integrilin bolus, clopidogrel Procedure: - LM cannulated with EBU 3.75 guide - Attempted to wire into distal circumflex but in the setting of >90 degree take -off of circumflex and proximal circ stenosis which appeared more significant than initially appreciated ( >90%) unable to pass wire into distal vessel despite use of multiple wires (whisper, pilot submersible 50 , luge). - Mid procedure noted to have obstruction of proximal left main - Using a 2.0 and 2.5 RX balloon on wire into occluded LAD flow re-established. - Hazyness noted in proximal LAD concerning for possible dissection. - Patient with diffuse pain including chest pain free but remained hemodynamically stable. - Stat Echo showed no effusion, and preserved LV function with some inferior hypokinesis. - Attempted again to pass wire into distal circumflex, wire went into small OM branches but could never be passed across proximal lesion. - As had NIRU 3 flow, hemodynamically/electrically stable decision made to abort procedure. Arterial Closure: TR Band Summary: 1. Unsuccessful PCI of LM/circumflex. CUSTOM CLOTHIER alone of distal left main but unable to intervene on severe proximal/distal circumflex. Recommendations: - Transfer to ICU - Continue heparin, nitroglycerin infusion. - Continue DAPT - Feel patient would be best served by transfer to [facility] for continued monitoring in case further emergent procedure needed. - Case discussed with Dr. Palafox and Dr. Alvarez in [place]. Hemodynamics Rest Ao: 86/55/69 Final Ao: 153/63/98 LV: -- Recommendations PCI without planned CABG Specimens None Radiation Exposure (mGy) 6396 Contrast (mls) 300 Visi Fluids (cc crystalloids) 2000 Drains None Anesthesia Moderate Procedural Complication(s) None Disposition PCU ACC Data Cardiac Status Clinical evaluation leading to the procedure CAD Presntation: Non STEMI Anginal Classification: CCS IV Heart Failure: No, NYHA Class: CCS I Cardiogenic Shock w/in 24Hrs: No Cardiac Arrest w/in 24Hrs: No Imaging studies past 6 months: Yes Stress studies past 6 months: No Standard Exercise Stress Test: No Stress Echocardiogram: No Stress Testing w/SPECT MPI: No Cardiac CTA: No Diagnostic Physician's Name: Bladimir Palafox M.D. Status: Elective Closure Device Percutaneous Entry Location: Radial Closure Device: Radial Band PCI Indication: PCI for high risk Non-STEMI Lesion Segment Name: left main Culprit Artery: Yes Stenosis Prior to Rx (%): 80 Chronic Total Occlusion: No IVUS: No FFR: No Pre-Procedure NIRU Flow: 3 Previously Treated Lesion: No Lesion Complexity: High/C Lesion Length (mm): 15 Thrombus Present: Yes Bifurcation Lesion: Yes Guidewire Across Lesion: Yes Guidewire: Stenosis Post-Procedure (%): 50 Post-Procedure NIRU Flow: 3 Device(s) Deployed: No Intraprocedure Events Significant Dissection: Yes Perforation: No (In obstructed vessel. Not hemodynamically stable)
[2017-02-28 19:02] LABS: PARTIAL THROMBOPLASTIN RATIO 8.4
[2017-02-28] MEDS: LORAZEPAM 0.5 MG TAB PO SCH (19:52)
[2017-04-22] MEDS ORDERED: ISOS60TA25 PO (15:17)
[2017-04-22] MEDS ORDERED: MAGN400T6 PO (15:17)
[2017-04-22] MEDS ORDERED: WARF2.5T8 PO (15:17)
[2017-04-22] MEDS ORDERED: OMEP20CA9 PO (15:17)
[2017-04-22] MEDS ORDERED: DOCU100C31 PO (15:17)
[2017-04-22] MEDS ORDERED: MULT-506 PO (15:17)
[2017-04-22] MEDS ORDERED: LNX125 PO (15:17)
[2017-04-22] MEDS ORDERED: ASCO10003 (15:17)
[2017-04-22] MEDS ORDERED: POTA10CA28 PO (15:17)
[2017-04-22] MEDS ORDERED: CLOP1TAB15 PO (15:17)
[2017-04-22] MEDS ORDERED: PRS5 (15:17)
[2017-04-22] MEDS ORDERED: LECI1CAP3 (15:17)
[2017-04-22] MEDS ORDERED: NIAC50TA9 PO (15:17)
[2017-04-22] MEDS ORDERED: LORA-741 PO (15:17)
[2017-04-22] MEDS ORDERED: FLM4 (15:17)
[2017-04-22] MEDS ORDERED: COEN1CAP PO (15:17)
[2017-04-22] MEDS ORDERED: TYLOTC500 PO (15:17)
[2017-04-22] MEDS ORDERED: ATOR-26 PO (15:17)
[2017-04-22] MEDS ORDERED: METO1TAB69 PO (15:17)
[2017-04-22] MEDS ORDERED: TORS20TA2 PO (15:17)
[2017-04-22] MEDS ORDERED: VITA1CRE (15:17)
== END 2017-02-28 20:46 | disposition short-term general hospital (02) | DRG 251 ==
LOC: C.EDA 03:07 → EDBD 03:07 → C.MSICU 05:30 → ENRESERV 05:36 → C.2T 13:59 → C.MSICU 02-28 13:40
PROVIDERS: ADMIT Student in an Organized Health Care Education/Training Program; ATTEND Family Medicine
PROC: B2131ZZ Fluoroscopy of Multiple Coronary Artery Bypass Grafts using Low Osmolar Contrast (ICD-10-PCS; 2017-02-27)
PROC: B2111ZZ Fluoroscopy of Multiple Coronary Arteries using Low Osmolar Contrast (ICD-10-PCS; 2017-02-27)
PROC: 3E033PZ Introduction of Platelet Inhibitor into Peripheral Vein, Percutaneous Approach (ICD-10-PCS; principal; 2017-02-28 10:30)
PROC: B2111ZZ Fluoroscopy of Multiple Coronary Arteries using Low Osmolar Contrast (ICD-10-PCS; principal; 2017-02-28 10:30)
PROC: B2131ZZ Fluoroscopy of Multiple Coronary Artery Bypass Grafts using Low Osmolar Contrast (ICD-10-PCS; principal; 2017-02-28 10:30)
PROC: 02703ZZ Dilation of Coronary Artery, One Artery, Percutaneous Approach (ICD-10-PCS; principal; 2017-02-28 10:30)
DX: I21.4 Non-ST elevation (NSTEMI) myocardial infarction (principal); I25.810 Atherosclerosis of coronary artery bypass graft(s) without angina pectoris; I25.719 Atherosclerosis of autologous vein coronary artery bypass graft(s) with unspecified angina pectoris; I12.9 Hypertensive chronic kidney disease with stage 1 through stage 4 chronic kidney disease, or unspecified chronic kidney disease; G62.9 Polyneuropathy, unspecified; Z95.1 Presence of aortocoronary bypass graft; S43.429A Sprain of unspecified rotator cuff capsule, initial encounter; E78.5 Hyperlipidemia, unspecified; M19.90 Unspecified osteoarthritis, unspecified site; Z82.49 Family history of ischemic heart disease and other diseases of the circulatory system; I25.2 Old myocardial infarction; M54.9 Dorsalgia, unspecified; N18.3 Chronic kidney disease, stage 3 (moderate); L98.9 Disorder of the skin and subcutaneous tissue, unspecified; Y92.009 Unspecified place in unspecified non-institutional (private) residence as the place of occurrence of the external cause; Z91.14 Patient's other noncompliance with medication regimen; Z79.82 Long term (current) use of aspirin; X58.XXXA Exposure to other specified factors, initial encounter

== ENCOUNTER → 2017-04-08 | Outpatient (CLI) | payer OTHER ==
[~2017-04-08] MED LIST changes: -AMLO-110 PO; +AMLO-114 PO; +ASCO10003; -ASCO10003 PO; +ATOR-26 PO; -CHOLCAP5 PO; +CLOP1TAB15 PO; +DOCU100C31 PO; -FLAX100024 PO; +FLM4; -GARL400T4 PO; -HYDR-4380 PO; +HYDR-5688 PO; +ISOS60TA25 PO; -LECI1200 PO; +LECI1CAP3; +LNX125 PO; +LORA-741 PO; -MAGN1TAB16 PO; +MAGN400T6 PO; +METO1TAB69 PO; +MULT-506 PO; -NIAC500T7 PO; +NIAC50TA9 PO; +OMEP20CA9 PO; +POTA10CA28 PO; -POTA99TA PO; +PRS5; +TORS20TA2 PO; +TYLOTC500 PO; +VITA1CRE; -VITA1TAB4 PO; +WARF2.5T8 PO
[2017-04-08 17:27] LABS: INR 2.2 (0.9-1.1); PROTHROMBIN TIME (PATIENT) 24.2 SECONDS (9.0-12.0)
[2017-04-08 17:29] LABS: BLOOD UREA NITROGEN 32 mg/dl (7-18); BUN/CREATININE RATIO 12.6 (10-20); CALCIUM 9.3 mg/dl (8.5-10.1); CARBON DIOXIDE 28 mmol/L (21-32); CHLORIDE 105 mmol/L (98-107); GLUCOSE 113 mg/dl (70-99); POTASSIUM 4.2 mmol/L (3.5-5.1); SODIUM 139 mmol/L (136-145)
== END | disposition home or self-care (01) ==
LOC: C.LABPVFM 11:12
PROVIDERS: ATTEND Physician Assistant
DX: I48.0 Paroxysmal atrial fibrillation (principal); Z51.81 Encounter for therapeutic drug level monitoring; Z79.01 Long term (current) use of anticoagulants; I50.22 Chronic systolic (congestive) heart failure; N18.3 Chronic kidney disease, stage 3 (moderate)

== ENCOUNTER 2017-12-07 22:16 | Emergency (ER) | payer OTHER ==
[~2017-12-07] VITALS: Ht 185.4 cm; Wt 75.8 kg
[~2017-12-07 22:16] MED LIST changes: -AMLO-114 PO; -ATEN-173 PO; -ATV/1 PO; -HYDR-5688 PO; -HYZ/50125 PO; +METO100T44 PO; -METO1TAB69 PO; -OMEP20CA59 PO; -SIMV20TA2 PO
[2017-12-07 22:19] VITALS: TEMP 36.3; Ht 185.4 cm; Wt 75.8 kg
--- NOTE | 2017-12-07 22:30 | EMERGENCY ROOM VISIT NOTE ---
ED Visit Note First contact with patient: 22:21 Patient was seen by our PA/AUTOMATION TEST ENGINEER. I was involved in the patient's care and did evaluate the patient myself. I was involved in the care throughout the ER stay. The ear canal foreign body was removed without complication. The patient is being discharged home.
--- NOTE | 2017-12-07 22:33 | EMERGENCY ROOM VISIT NOTE ---
ED Visit Note First contact with patient: 22:21 CHIEF COMPLAINT: Foreign body ear HISTORY OF PRESENT ILLNESS: This 82-year-old patient presents to the emergency department and states part his hearing aid is stuck in the ear canal all day and try to get it out. There has not been any pain, balance problems, fever or dizziness. The patient did try to remove it. They rate the discomfort 1/ 10. REVIEW OF SYSTEMS: A 6 system review of systems was completed with positives and pertinent negatives listed in the HPI. ALLERGIES: NSAIDs, reviewed MEDICATIONS: Reviewed PMH: Heart disease, reviewed SOCIAL HISTORY: No drug use PHYSICAL EXAM: VITALS: Vitals are noted on the nurse's note and reviewed by myself. Vital signs stable. GENERAL: Pleasant gentleman, in no acute distress, nondiaphoretic, well- developed well-nourished. EARS: The right ear canal with foreign body present and this was removed using alligator forceps without difficulties. Once the foreign body was removed there was inflamation and minimal erythema of the external auditory canal. The tympanic membranes intact bilaterally. MOUTH: The pharynx is clear. FACE: There is no facial swelling or erythema. EMERGENCY DEPARTMENT COURSE: I examined the patient. Patient verbalized consent to procedure and needed using alligator forceps the hearing aid was easily removed. The ear was rechecked and no other foreign bodies are visualized. TM was intact. Following this the right ear canal seen to be slightly erythematous but the tympanic membranes were clear and not inflamed. Patient was informed to follow-up family care as needed or here in the ER sooner for pain, fevers, hearing falls, worsening signs or symptoms or as needed. He was discharged home in stable condition. DIAGNOSIS: Foreign body right ear canal, removed DISCHARGE INSTRUCTIONS & TREATMENT: Monitor your blood pressure. It was high today. Follow-up with family care as needed. Return to ER sooner for hearing problems, balance problems, pain, worsening signs or symptoms or as needed. Problem List Medical Problems: (1) Acute renal failure Status: Resolved (2) Heart disease Status: Chronic (3) Hypertension Status: Chronic (4) Orthostatic hypotension Status: Resolved (5) Renal failure Status: Resolved (6) Vertigo Status: Resolved Current/Historical Medications Scheduled Acetaminophen (Tylenol), 500 MG PO Q4H Aspirin Enteric Coated (Ecotrin Or Generic), 81 MG PO QAM Atorvastatin (Lipitor), 1 TAB PO DAILY Clopidogrel (Plavix), 75 MG PO DAILY Digoxin (Digoxin), 0.125 MG PO DAILY Docusate Sodium (Docusate Sodium), 1 CAP PO DAILY Isosorbide Mononitrate Ext Rel (Imdur Ext Rel), 60 MG PO QAM Lorazepam (Ativan), 0.5 MG PO Q6H Metoprolol Succ (Toprol Xl) (Toprol-Xl ), 100 MG PO DAILY Multivitamin (Multivitamin), 1 TAB PO DAILY Niacin (Niacin), 1,200 MG PO DAILY Omeprazole (Prilosec), 1 CAP PO DAILY Potassium Chloride (Micro-K Ext Rel), 30 MEQ PO DAILY Warfarin Sod (Jantoven), 2.5 MG PO DAILY Miscellaneous Medications Ascorbic Acid (Vitamin C) Coenzyme Q10 (Ubidecarenone) (Co Q10), 2 CAP PO Finasteride (Finasteride) Lecithin (Lecithin 3500) Magnesium Oxide (Mag-Ox), 400 MG PO Tamsulosin HCl (Tamsulosin HCl) Torsemide (Demadex), 20 MG PO Vitamin E (Topical) (Vitamin E), 400 UNITS Allergies Coded Allergies: Methylprednisolone (Verified Allergy, Unknown, FAST HEART RATE, 12/07/17) Tetracycline (Verified Allergy, Unknown, RASH, 12/07/17) NSAIDs (Verified Adverse Reaction, Intermediate, ULCER, 12/07/17) Vital Signs Date Time Temp Pulse Resp B/P (MAP) Pulse Ox O2 Delivery O2 Flow Rate FiO2 12/07/17 22:19 36.3 71 18 168/83 98 Room Air Departure Information Referrals Milagros Villela C.R.NOusmane (PCP) Patient Instructions My [facility]
[2017-12-07 22:49] VITALS: BP 159/83; PULSE 72; O2SAT 97
== END 2017-12-07 22:50 | disposition home or self-care (01) ==
LOC: C.EDB 22:18 → C.EDA 22:50
DX: S00.451A Superficial foreign body of right ear, initial encounter (principal); X58.XXXA Exposure to other specified factors, initial encounter; I51.9 Heart disease, unspecified; I10 Essential (primary) hypertension; Z79.01 Long term (current) use of anticoagulants; Z51.81 Encounter for therapeutic drug level monitoring; Z88.8 Allergy status to other drugs, medicaments and biological substances

== ENCOUNTER → 2018-03-30 | Outpatient (CLI) | payer OTHER ==
[~2018-03-30] MED LIST changes: -ASCO10003; +ASCO10003 PO; +ASPI-319 PO; -ASPI81TA21 PO; +ATV/1 PO; -COEN1CAP PO; +COEN60CA2 PO; -DOCU100C31 PO; -FLM4; +FLM4 PO; +HYDR-5688 PO; -LECI1CAP3; +LECI1CAP3 PO; -LORA-741 PO; +LOSA1TAB PO; -NIAC50TA9 PO; +NSP500 PO; -PRS5; +PRS5 PO; -TYLOTC500 PO; -VITA1CRE; +VITA1TAB4 PO; -WARF2.5T8 PO
[2018-03-30 13:18] LABS: BLOOD UREA NITROGEN 32 mg/dl (7-18); CALCIUM 8.7 mg/dl (8.5-10.1); CARBON DIOXIDE 30 mmol/L (21-32); CREATININE 1.98 mg/dl (0.60-1.40); GLUCOSE 100 mg/dl (70-99); POTASSIUM 4.4 mmol/L (3.5-5.1); SODIUM 139 mmol/L (136-145)
== END | disposition home or self-care (01) ==
LOC: C.LABPVFM 11:23
PROVIDERS: ATTEND Physician Assistant
DX: N18.3 Chronic kidney disease, stage 3 (moderate) (principal); I48.0 Paroxysmal atrial fibrillation; I50.22 Chronic systolic (congestive) heart failure; I50.811 Acute right heart failure; I21.4 Non-ST elevation (NSTEMI) myocardial infarction; I25.5 Ischemic cardiomyopathy; I12.9 Hypertensive chronic kidney disease with stage 1 through stage 4 chronic kidney disease, or unspecified chronic kidney disease